=== PATIENT | female | born 1945 | race Caucasian/White ===

== ENCOUNTER 2024-02-29 07:51 | Outpatient (RCR) | payer MEDICARE, BC, SELFPAY ==
--- NOTE | 2024-02-23 23:21 | CTCFLWUP_ITS ---
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 On maintenance rituximab every 2 months for 2 years (05/12/2022??03/2025) S/p 6 cycles of rituximab and Bendamustine (10/16/2021 - 03/12/2020. REASON FOR TODAY?S VISIT: This is office follow-up visit. Ms. Kang is here at [facility] accompanied by her . She is clinically doing well. Denies any new compla ints. Does have occasional diarrhea. Denies any cough, chest pain, abdominal pain or leg cramps. Recently she had repeat CT scans of the chest abdomen pelvis. She is in the clinic today for follow-up. Currently she is on maintenance rituximab and tolerating it very well without any significant side ef fects. HISTORY OF PRESENT ILLNESS: Cherry Kang is a 78-year-old ENG speaking female with history of hypothyroidism gastroesophageal reflux disease referred to hematology clinic for lymphocytosis. 07/29/2019: WBC 9.7, absolute lymphocyte count 3.0, hemoglobin 13.1, MCV 94, platelets 404,000. 05/15/2020: WBC 12.2, absolute lymphocyte count 5.7, hemoglobin 13.8, platelets 390,000. 07/16/2021: WBC 87.1, absolute lymphocyte count 62.2, hemoglobin 13.8, platelets 417,000. 08/29/2021: Bone marrow biopsy and aspiration? 10/16/2021 - 03/12/2022: Ms. Kang was treated with 6 cycles of Bendamustine and rituximab. 04/15/2022: Bone marrow biopsy and aspiration? 04/21/2022: CT scan of the chest abdomen and pelvis with IV contrast 12/08/2022: CT scan of the chest abdomen and pelvis with IV contrast 12/26/2022: Ms. Kang was referred to Dr. Boudreaux. Dr Boudreaux's impression was thickened endometrium without any postmenopausal bleeding. Inactive endometrium by EMB. 08/05/2023: CT scan of the chest abdomen and pelvis with IV contrast? PAST MEDICAL HISTORY: HTN Hypothyroid High?cholesterol GERD PAST SURGICAL HISTORY: Left thumb surgery - 3 yrs ago Phil carpal tunnel surgery - 3 yrs ago MEDICATIONS: 1. amlodipine - 5 mg 1 tab Daily 2. escitalopram oxalate - 10 mg 1 tab Daily 3. hydroCHLOROthiazide - 12.5 mg 1 Capsule Daily 4. levothyroxine - 25 mcg 1 tab Daily 5. lisinopril - 20 mg 1 tab Daily 6. metoprolol tartrate - 50 mg 1 tab Twice a Day 7. pravastatin - 20 mg 1 tab Daily Medications Last Reconciled by Jasmyne Marino MA on 10/20/2023 ALLERGIES: Penicillins; Sulfa (Sulfonamide Antibiotics); erythromycin REVIEW OF SYSTEMS: Neurological: No headache, seizures or blurring of vision. Gastrointestinal: No nausea, vomiting, diarrhea or constipation. Cardiovascular: No palpitations or angina pains. Respiratory: No cough, chest pain or shortness of breath. PHYSICAL EXAMINATION: VITAL SIGNS: Temperature?99.3, B/P?161/71, Oxygen?Saturation?98% Weight?183?lbs PAIN: 0 - No pain EYE: Conjunctivae is white MOUTH: Oral cavity is dry. CHEST: Clear to auscultation. No wheezes or rales audible. CARDIAC: Rhythm regular, no murmurs or gallops present. ABDOMEN: Soft. No hepatomegaly. No splenomegaly. EXTREMITIES: No pedal edema or cyanosis. ASSESSMENT and plan: 1. 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 S/p 6 cycles of Bendamustine rituximab completed on 03/12/2022. Unable to tolerate ibrutinib Recent bone marrow biopsy and aspiration negative for mantle cell lymphoma. CT scans done on 08/05/2023 showed a 4 mm soft pulmonary nodule in the right upper lobe. No other lashell ors were noted. 01/07/2024 CT scan do not show any concerning pulmonary nodules as seen on the last scan. Advised pat ient that her nodules are too small even on July 2023 CT scan and do not require any follow-up Advised to get up to date vaccination as her ability to form good vaccine response is low Patient has been on maintenance rituximab and plan for total 2 years Continue rituximab Patient was checked and do not have hepatitis B. Patient is not sexually active and do not have any high risk behavior. Other medical conditions include hypertension hypothyroidism and gastro esophageal reflux disease and advised to follow-up with primary care 1. Electronically Signed by: {Object.Sanct_ID*PnP.NameFL@M}, {Object.Sanct_ID*PnP.Suffix@U} D: {Object.Sanct_Date} T: {Object.Sanct_Time} CC: PCP: Andres Madrigal Referring: Kam Murphy This document was completed utilizing speech recognition software. Grammatical errors, random word in sertions, pronoun errors, and incomplete sentences are an occasional consequence of this system due t o software limitations, ambient noise, and hardware issues. Any formal questions or concerns about th e content, text or information contained within the body of this dictation should be directly address ed to the provider for clarification.
[2024-02-29 08:40] LABS: Basophils % (Auto) 0 % (0-2.5); Eosinophils # (Auto) 0.1 Thou/mm3 (0.0-0.5); Eosinophils % (Auto) 3 % (0-10); Hematocrit 38.2 % (36.0-46.0); Immature Granulocytes % (Auto) 4 % (0-0); Immature Granulocytes Auto 0.13 Thou/mm3 (0.00-0.00); Lymphocytes # (Auto) 0.5 Thou/mm3 (1.0-4.8); Lymphocytes % (Auto) 16 % (10-50); Mean Corpuscular Hemoglobin 31.2 pg (25.0-35.0); Mean Corpuscular Volume 92 fL (80-100); Monocytes # (Auto) 0.4 Thou/mm3 (0.0-0.8); Monocytes % (Auto) 11 % (0-12); Neutrophils # (Auto) 2.2 Thou/mm3 (1.8-7.7); Neutrophils % (Auto) 66 % (37-80); Nucleated Red Blood Cell % 0 /100 WBC (0); Platelet Count 298 Thou/mm3 (140-440); RDW Standard Deviation 42.4 fL (36.4-46.3); Red Blood Count 4.17 Miln/mm3 (4.00-5.20); White Blood Count 3.3 Thou/mm3 (3.6-11.0)
[2024-02-29 08:58] LABS: Alanine Aminotransferase 15 U/L (10-49); Albumin, Serum 4.4 gm/dL (3.4-4.8); Albumin/Globulin Ratio 2.2 (1.2-2.2); Alkaline Phosphatase 62 U/L (46-116); Anion Gap 5 (7-16); Aspartate Amino Transferase 17 U/L (0-34); BUN/Creatinine Ratio 22 Ratio (12-20); Bilirubin,Total 0.4 mg/dL (0.3-1.2); Blood Urea Nitrogen 13 mg/dL (9-23); Calcium 10.9 mg/dL (8.3-10.6); Calcium (Corrected) 10.9 mg/dL (8.5-10.1); Carbon Dioxide 29.4 mMol/L (20.0-31.0); Chloride 104 mMol/L (98-107); Creatinine (Component) 0.6 mg/dL (0.6-1.3); Glucose 99 mg/dL (74-106); Osmolality,Calculated 275 (275-295); Potassium 4.2 mMol/L (3.4-5.1); Sodium 138 mMol/L (136-145); Total Protein 6.4 gm/dL (5.7-8.2); eGFR > 60 See Note
== END 2024-03-12 23:59 | disposition home or self-care (01) ==
LOC: SCTC 07:51
PROVIDERS: PCP Family Medicine; Referring Provider Family Medicine; Visit Provider Internal Medicine Hematology & Oncology
DX: Z51.11 Encounter for antineoplastic chemotherapy (principal); C83.10 Mantle cell lymphoma, unspecified site; R91.1 Solitary pulmonary nodule; I10 Essential (primary) hypertension; E03.9 Hypothyroidism, unspecified; K21.9 Gastro-esophageal reflux disease without esophagitis
CPT/HCPCS: 80053; 85025; 96375; 96413; 96415; 99212; J1200; J7050; J9312; G0463

== ENCOUNTER 2024-05-02 07:44 | Outpatient (RCR) | payer MEDICARE, BC, SELFPAY ==
[2024-05-02 08:41] LABS: Basophils % (Auto) 2 % (0-2.5); Eosinophils # (Auto) 0.1 Thou/mm3 (0.0-0.5); Eosinophils % (Auto) 4 % (0-10); Hematocrit 36.2 % (36.0-46.0); Hemoglobin 12.3 g/dL (12.0-16.0); Immature Granulocytes % (Auto) 5 % (0-0); Immature Granulocytes Auto 0.06 Thou/mm3 (0.00-0.00); Lymphocytes # (Auto) 0.4 Thou/mm3 (1.0-4.8); Lymphocytes % (Auto) 31 % (10-50); Mean Corpuscular Hemoglobin 30.8 pg (25.0-35.0); Mean Corpuscular Volume 91 fL (80-100); Monocytes # (Auto) 0.3 Thou/mm3 (0.0-0.8); Monocytes % (Auto) 21 % (0-12); Neutrophils # (Auto) 0.5 Thou/mm3 (1.8-7.7); Neutrophils % (Auto) 38 % (37-80); Nucleated Red Blood Cell % 0 /100 WBC (0); Platelet Count 259 Thou/mm3 (140-440); RDW Standard Deviation 44.7 fL (36.4-46.3); Red Blood Count 3.99 Miln/mm3 (4.00-5.20)
[2024-05-02 08:52] LABS: Uric Acid 5.5 mg/dL (3.1-7.8)
[2024-05-02 08:56] LABS: Alanine Aminotransferase 12 U/L (10-49); Albumin, Serum 4.3 gm/dL (3.4-4.8); Albumin/Globulin Ratio 2.3 (1.2-2.2); Alkaline Phosphatase 58 U/L (46-116); Anion Gap 6 (7-16); Aspartate Amino Transferase 14 U/L (0-34); BUN/Creatinine Ratio 20 Ratio (12-20); Bilirubin,Total 0.4 mg/dL (0.3-1.2); Blood Urea Nitrogen 12 mg/dL (9-23); Calcium 10.4 mg/dL (8.3-10.6); Calcium (Corrected) 10.4 mg/dL (8.5-10.1); Carbon Dioxide 27.3 mMol/L (20.0-31.0); Chloride 104 mMol/L (98-107); Creatinine (Component) 0.6 mg/dL (0.6-1.3); Globulin 1.9 gm/dL (2.3-3.5); Glucose 107 mg/dL (74-106); Osmolality,Calculated 273 (275-295); Potassium 4.4 mMol/L (3.4-5.1); Sodium 137 mMol/L (136-145); Total Protein 6.2 gm/dL (5.7-8.2); eGFR > 60 See Note
[2024-05-02 09:15] LABS: White Blood Count 1.3 Thou/mm3 (3.6-11.0)
[2024-05-02 15:51] LABS: Path Review Blood Smear Sent to Pathologist
== END 2024-05-13 23:59 | disposition home or self-care (01) ==
LOC: SCTC 07:44
PROVIDERS: PCP Family Medicine; Referring Provider Family Medicine; Visit Provider Internal Medicine Hematology & Oncology
DX: C83.10 Mantle cell lymphoma, unspecified site (principal); I10 Essential (primary) hypertension; E03.9 Hypothyroidism, unspecified; K21.9 Gastro-esophageal reflux disease without esophagitis
CPT/HCPCS: 36415; 80053; 84550; 85025; J7050; J9312

== ENCOUNTER → 2024-05-17 | Outpatient (CLI) | payer MEDICARE, BC, SELFPAY ==
[2024-05-17 11:16] LABS: Basophils % (Auto) 1 % (0-2.5); Eosinophils # (Auto) 0.1 Thou/mm3 (0.0-0.5); Eosinophils % (Auto) 4 % (0-10); Hematocrit 37.7 % (36.0-46.0); Hemoglobin 12.6 g/dL (12.0-16.0); Immature Granulocytes % (Auto) 8 % (0-0); Immature Granulocytes Auto 0.13 Thou/mm3 (0.00-0.00); Lymphocytes # (Auto) 0.6 Thou/mm3 (1.0-4.8); Lymphocytes % (Auto) 41 % (10-50); Mean Corpuscular HGB Conc 33.4 g/dl (31.0-37.0); Mean Corpuscular Hemoglobin 30.9 pg (25.0-35.0); Mean Corpuscular Volume 92 fL (80-100); Monocytes # (Auto) 0.3 Thou/mm3 (0.0-0.8); Monocytes % (Auto) 21 % (0-12); Neutrophils # (Auto) 0.4 Thou/mm3 (1.8-7.7); Neutrophils % (Auto) 24 % (37-80); Nucleated Red Blood Cell % 0 /100 WBC (0); Platelet Count 266 Thou/mm3 (140-440); RDW Standard Deviation 43.5 fL (36.4-46.3); Red Blood Count 4.08 Miln/mm3 (4.00-5.20)
[2024-05-17 11:32] LABS: White Blood Count 1.6 Thou/mm3 (3.6-11.0)
[2024-05-17 11:34] LABS: T4 (Thyroxine) 7.8 mcg/dL (4.5-10.9)
[2024-05-17 11:41] LABS: Alanine Aminotransferase 13 U/L (10-49); Albumin, Serum 4.4 gm/dL (3.4-4.8); Albumin/Globulin Ratio 2.4 (1.2-2.2); Alkaline Phosphatase 65 U/L (46-116); Anion Gap 6 (7-16); Aspartate Amino Transferase 11 U/L (0-34); BUN/Creatinine Ratio 23 Ratio (12-20); Bilirubin,Total 0.7 mg/dL (0.3-1.2); Blood Urea Nitrogen 14 mg/dL (9-23); Calcium 10.3 mg/dL (8.3-10.6); Calcium (Corrected) 10.3 mg/dL (8.5-10.1); Carbon Dioxide 29.5 mMol/L (20.0-31.0); Chloride 101 mMol/L (98-107); Creatinine (Component) 0.6 mg/dL (0.6-1.3); Globulin 1.8 gm/dL (2.3-3.5); Glucose 91 mg/dL (74-106); Osmolality,Calculated 272 (275-295); Potassium 4.7 mMol/L (3.4-5.1); Sodium 136 mMol/L (136-145); Thyroid Stimulating Hormone 2.95 uIU/mL (0.55-4.78); Total Protein 6.2 gm/dL (5.7-8.2); Uric Acid 5.7 mg/dL (3.1-7.8); eGFR > 60 See Note
== END | disposition home or self-care (01) ==
LOC: SCTO 10:32
PROVIDERS: PCP Family Medicine; Referring Provider Internal Medicine Hematology & Oncology; Visit Provider Internal Medicine Hematology & Oncology
DX: C85.90 Non-Hodgkin lymphoma, unspecified, unspecified site (principal); I10 Essential (primary) hypertension; K58.0 Irritable bowel syndrome with diarrhea; E03.9 Hypothyroidism, unspecified
CPT/HCPCS: 36415; 80053; 84436; 84443; 84550; 85025

== ENCOUNTER 2024-05-18 13:47 | Outpatient (RCR) | payer MEDICARE, BC, SELFPAY ==
[2024-05-16 08:55] LABS: Basophils % (Auto) 1 % (0-2.5); Eosinophils # (Auto) 0.1 Thou/mm3 (0.0-0.5); Eosinophils % (Auto) 3 % (0-10); Hematocrit 36.7 % (36.0-46.0); Hemoglobin 12.4 g/dL (12.0-16.0); Immature Granulocytes % (Auto) 1 % (0-0); Immature Granulocytes Auto 0.01 Thou/mm3 (0.00-0.00); Lymphocytes # (Auto) 0.5 Thou/mm3 (1.0-4.8); Lymphocytes % (Auto) 33 % (10-50); Mean Corpuscular HGB Conc 33.8 g/dl (31.0-37.0); Mean Corpuscular Hemoglobin 31.1 pg (25.0-35.0); Mean Corpuscular Volume 92 fL (80-100); Monocytes # (Auto) 0.4 Thou/mm3 (0.0-0.8); Monocytes % (Auto) 24 % (0-12); Neutrophils # (Auto) 0.6 Thou/mm3 (1.8-7.7); Neutrophils % (Auto) 38 % (37-80); Nucleated Red Blood Cell % 0 /100 WBC (0); Platelet Count 272 Thou/mm3 (140-440); RDW Standard Deviation 44.5 fL (36.4-46.3); Red Blood Count 3.99 Miln/mm3 (4.00-5.20)
[2024-05-16 09:00] LABS: White Blood Count 1.5 Thou/mm3 (3.6-11.0)
[2024-05-16 09:20] LABS: Alanine Aminotransferase 11 U/L (10-49); Albumin, Serum 4.3 gm/dL (3.4-4.8); Albumin/Globulin Ratio 2.2 (1.2-2.2); Alkaline Phosphatase 64 U/L (46-116); Anion Gap 8 (7-16); Aspartate Amino Transferase 13 U/L (0-34); BUN/Creatinine Ratio 18 Ratio (12-20); Bilirubin,Total 0.6 mg/dL (0.3-1.2); Blood Urea Nitrogen 14 mg/dL (9-23); Calcium 10.1 mg/dL (8.3-10.6); Calcium (Corrected) 10.1 mg/dL (8.5-10.1); Carbon Dioxide 26.2 mMol/L (20.0-31.0); Chloride 105 mMol/L (98-107); Creatinine (Component) 0.8 mg/dL (0.6-1.3); Glucose 111 mg/dL (74-106); Osmolality,Calculated 279 (275-295); Potassium 4.1 mMol/L (3.4-5.1); Sodium 139 mMol/L (136-145); Total Protein 6.3 gm/dL (5.7-8.2); eGFR > 60 See Note
[2024-05-16 10:07] LABS: Uric Acid 6.4 mg/dL (3.1-7.8)
--- NOTE | 2024-05-18 14:44 | CTCFLWUP_ITS ---
Patient: CHERRY KANG : 1945 Page 2 of 2 FOLLOW UP NOTE DATE OF SERVICE: 05/18/2024 NAME: CHERRY KANG ACCOUNT: [id number] : 1945 AGE: 78 INTERVAL HISTORY: Patient have no new complaints ONCOLOGY HISTORY: DIAGNOSIS: Non-Hodgkin lymphoma, unspecified, unspecified site [ICD10] C85.90 DATE OF DIAGNOSIS: 07/16/2021 STAGE/TNM: Mantle cell lymphoma TREATMENT HISTORY: Care?Plan Start?Date Cycle Day Intent Rituxan?375?+?Bendamustine?90?Katherine 10/16/2021 1 28 Palliative KCL?20 01/08/2022 1 1 Palliative Rituximab?375mg/m*2?maint?q?2month 05/12/2022 1 60 Palliative HISTORY OF PRESENT ILLNESS: Cherry Kang is a 78-year-old ENG speaking female with history of hypothyroidism gastroesophageal reflux disease referred to hematology clinic for lymphocytosis. 07/29/2019: WBC 9.7, absolute lymphocyte count 3.0, hemoglobin 13.1, MCV 94, platelets 404,000. 05/15/2020: WBC 12.2, absolute lymphocyte count 5.7, hemoglobin 13.8, platelets 390,000. 07/16/2021: WBC 87.1, absolute lymphocyte count 62.2, hemoglobin 13.8, platelets 417,000. 08/29/2021: Bone marrow biopsy and aspiration? 10/16/2021 - 03/12/2022: Ms. Kang was treated with 6 cycles of Bendamustine and rituximab. 04/15/2022: Bone marrow biopsy and aspiration? 04/21/2022: CT scan of the chest abdomen and pelvis with IV contrast 12/08/2022: CT scan of the chest abdomen and pelvis with IV contrast 12/26/2022: Ms. Kang was referred to Dr. Boudreaux. Dr Boudreaux's impression was thickened endometrium without any postmenopausal bleeding. Inactive endometrium by EMB. 08/05/2023: CT scan of the chest abdomen and pelvis with IV contrast? 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 amlodipine - 5 mg 1 tab Daily 2. escitalopram oxalate - 10 mg 1 tab Daily 3. hydroCHLOROthiazide - 12.5 mg 1 Capsule Daily 4. levothyroxine - 25 mcg 1 tab Daily 5. lisinopril - 20 mg 1 tab Daily 6. metoprolol tartrate - 50 mg 1 tab Twice a Day 7. pravastatin - 20 mg 1 tab Daily Medications Last Reconciled by Jasmyne Marino MA on 05/18/2024 ALLERGIES: Penicillins; Sulfa (Sulfonamide Antibiotics); erythromycin REVIEW OF SYSTEMS: A complete 14-point review of systems was performed and is negative except as noted in interval history. PHYSICAL EXAMINATION: VITAL SIGNS: PAIN: 0 - No pain ECOG Performance Status: 0 - Asymptomatic and fully active GENERAL APPEARANCE: Appears well, in no apparent distress, appropriately interactive. HEENT: Normocephalic, no temporal wasting, normal conjunctiva, no scleral icterus, normal hearing, lips without lesions, neck normal range of motion. CARDIOVASCULAR: Not assessed. PULMONARY: Normal respiratory effort, no respiratory distress or use of accessory muscles, speaking in full sentences, no tachypnea. EXTREMITIES: No pedal edema or cyanosis. SKIN: Normal skin appearance. NEUROLOGIC: Alert and oriented x4. PSHYCHIATRIC: Appropriate affect, mood normal, behavior normal, intact thought and speech. 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 S/p 6 cycles of Bendamustine rituximab completed on 03/12/2022. Unable to tolerate ibrutinib Recent bone marrow biopsy and aspiration negative for mantle cell lymphoma. CT scans done on 08/05/2023 showed a 4 mm soft pulmonary nodule in the right upper lobe. No other tumors were noted. 01/07/2024 CT scan do not show any concerning pulmonary nodules as seen on the last scan. Advised patient that her nodules are too small even on July 2023 CT scan and do not require any follow-up Advised to get up to date vaccination as her ability to form good vaccine response is low Patient has been on maintenance rituximab and plan for total 2 years Patient was checked and do not have hepatitis B. Patient is found to be neutropenic Her white cell count has been decreasing since February Last treatment was in February 2024 with Rituxan Will do bone marrow biopsy Will refer to Dr. Santa to do biopsy as well as give second opinion Will also do nutritional workup including B12 folic acid and reticulocyte count Other medical conditions include hypertension hypothyroidism and gastro esophageal reflux disease and advised to follow-up with primary care CBC CMP B12 folic acid reticulocyte count Referral to Dr. Santa for bone marrow biopsy and second opinion RETURN TO CLINIC: 4 weeks BILLING AND COMPLIANCE: I reviewed external records from providers outside my specialty as summarized above. I spent a total of 50 minutes on this patient?s care on the day of their visit excluding time spent related to any billed procedures. This time includes time spent with the patient as well as time spent documenting in the medical record, reviewing patients records and tests, obtaining history, placing orders, communicating with other healthcare professionals, counseling the patient, family or caregiver, and/or care coordination for the diagnoses above. Electronically Signed by: David Mendoza MD T: 2:42 PM CC: PCP: Andres Madrigal Referring: Andres Madrigal This document was completed utilizing speech recognition software. Grammatical errors, random word insertions, pronoun errors, and incomplete sentences are an occasional consequence of this system due to software limitations, ambient noise, and hardware issues. Any formal questions or concerns about the content, text or information contained within the body of this dictation should be directly addressed to the provider for clarification.
== END 2024-06-10 23:59 | disposition home or self-care (01) ==
LOC: SCTC 13:47
PROVIDERS: PCP Family Medicine; Referring Provider Family Medicine; Visit Provider Internal Medicine Hematology & Oncology
DX: C83.10 Mantle cell lymphoma, unspecified site (principal); Z92.21 Personal history of antineoplastic chemotherapy; R91.1 Solitary pulmonary nodule; D70.9 Neutropenia, unspecified; I10 Essential (primary) hypertension; E03.9 Hypothyroidism, unspecified; K21.9 Gastro-esophageal reflux disease without esophagitis
CPT/HCPCS: 36415; 80053; 84550; 85025; 99212; G0463

== ENCOUNTER → 2024-06-10 | Outpatient (CLI) | payer MEDICARE, BC, SELFPAY ==
--- NOTE | 2024-06-10 14:00 | XR_ITS ---
Examination: Bone scan whole body, radioisotope Date and time of exam: June 02, 2024 1334 hrs. Indications: Diagnosis lymphocytosis, non-Hodgkin's lymphoma Technique: Study has been performed with intravenous administration of 24.2 mci 99M technetium MDP. Anterior, posterior whole body images are obtained. Images have been obtained including the lower extremities. Findings: Positive bone scan, increased isotope accumulation L3 and mid to lower dorsal vertebral body likely T8 Impression: Positive bone scan L3, T8, recommend plain films lumbar thoracic spine follow-up
== END | disposition home or self-care (01) ==
LOC: SNUC 08:18
PROVIDERS: PCP Family Medicine; Referring Provider Internal Medicine Hematology & Oncology; Visit Provider Internal Medicine Hematology & Oncology
DX: R93.7 Abnormal findings on diagnostic imaging of other parts of musculoskeletal system (principal); C85.90 Non-Hodgkin lymphoma, unspecified, unspecified site
CPT/HCPCS: 78306; A9503

== ENCOUNTER → 2024-06-20 | Outpatient (CLI) | payer MEDICARE, BC, SELFPAY ==
--- NOTE | 2024-06-20 | XR_ITS ---
Examination: Lumbar spine, 5 views Technique: Lumbar spine AP, lateral, coned lateral lower lumbar spine, bilateral obliques 5 views Exam date and time: June 20, 2024 1040 hrs. Comparison Nika medicine bone scan June 10, 2024 Indications: Diagnosis non-Hodgkin's lymphoma, positive nuclear medicine bone scan June 10, 2024 including L3 vertebral body Findings: Significant osteopenia Diffuse advanced facet arthropathy Diffuse advanced lumbar degenerative disc disease No osteoblastic or osteolytic vertebral body lesions Impression: Diffuse advanced lumbar degenerative disc disease No findings diagnostic for osseous metastatic disease
--- NOTE | 2024-06-20 | XR_ITS ---
Examination: Thoracic spine 3 views Technique one AP lateral coned lateral upper dorsal spine 3 views Exam date and time: June 20, 2024 1040 hrs. Comparison [facility] medicine bone scan April 09, 2025 Indications: Back pain this month, diagnosis non-Hodgkin's lymphoma., Positive nuclear medicine bone scan L3, T8 Findings: Adequate alignment thoracic vertebral bodies No thoracic fracture No cortical bone destruction or osteoblastic metastases noted Diffuse moderate to advanced thoracic degenerative disc disease Impression: Diffuse advanced thoracic degenerative disc disease No findings diagnostic for osseous metastatic disease
== END | disposition home or self-care (01) ==
PROVIDERS: PCP Family Medicine; Referring Provider Internal Medicine Hematology & Oncology; Visit Provider Internal Medicine Hematology & Oncology
DX: M51.34 Other intervertebral disc degeneration, thoracic region (principal); M51.369 Other intervertebral disc degeneration, lumbar region without mention of lumbar back pain or lower extremity pain; C85.90 Non-Hodgkin lymphoma, unspecified, unspecified site
CPT/HCPCS: 72072; 72110

== ENCOUNTER → 2024-06-28 | Outpatient (CLI) | payer MEDICARE, BC, SELFPAY ==
[2024-06-28 12:29] LABS: Basophils % (Auto) 1 % (0-2.5); Eosinophils % (Auto) 2 % (0-10); Hematocrit 36.3 % (36.0-46.0); Hemoglobin 12.7 g/dL (12.0-16.0); Immature Granulocytes % (Auto) 3 % (0-0); Immature Granulocytes Auto 0.06 Thou/mm3 (0.00-0.00); Immature Reticulocyte Fraction 6.7 % (3.0-15.9); Lymphocytes # (Auto) 0.6 Thou/mm3 (1.0-4.8); Lymphocytes % (Auto) 35 % (10-50); Mean Corpuscular Hemoglobin 31.2 pg (25.0-35.0); Mean Corpuscular Volume 89 fL (80-100); Monocytes # (Auto) 0.4 Thou/mm3 (0.0-0.8); Monocytes % (Auto) 22 % (0-12); Neutrophils # (Auto) 0.6 Thou/mm3 (1.8-7.7); Neutrophils % (Auto) 36 % (37-80); Nucleated Red Blood Cell % 0 /100 WBC (0); Platelet Count 270 Thou/mm3 (140-440); RDW Standard Deviation 41.8 fL (36.4-46.3); Red Blood Count 4.07 Miln/mm3 (4.00-5.20); Reticulocyte Absolute Auto 82.2 Biln/L (25.0-75.0); Reticulocyte Hgb Content 36.3 pg (28.0-35.0)
[2024-06-28 12:38] LABS: White Blood Count 1.8 Thou/mm3 (3.6-11.0)
[2024-06-28 12:50] LABS: Parathyroid Hormone Intact 79.1 pg/ml (18.5-88.0)
[2024-06-28 12:54] LABS: Alanine Aminotransferase 11 U/L (10-49); Albumin, Serum 4.3 gm/dL (3.4-4.8); Albumin/Globulin Ratio 2.3 (1.2-2.2); Alkaline Phosphatase 64 U/L (46-116); Anion Gap 6 (7-16); Aspartate Amino Transferase 13 U/L (0-34); BUN/Creatinine Ratio 18 Ratio (12-20); Bilirubin,Total 0.8 mg/dL (0.3-1.2); Blood Urea Nitrogen 11 mg/dL (9-23); Calcium 10.2 mg/dL (8.3-10.6); Calcium (Corrected) 10.2 mg/dL (8.5-10.1); Carbon Dioxide 30.5 mMol/L (20.0-31.0); Chloride 97 mMol/L (98-107); Creatinine (Component) 0.6 mg/dL (0.6-1.3); Globulin 1.9 gm/dL (2.3-3.5); Glucose 87 mg/dL (74-106); Osmolality,Calculated 264 (275-295); Potassium 3.8 mMol/L (3.4-5.1); Sodium 133 mMol/L (136-145); Total Protein 6.2 gm/dL (5.7-8.2); eGFR > 60 See Note
[2024-06-28 12:56] LABS: Vitamin B12 703 pg/mL (211-911)
== END | disposition home or self-care (01) ==
LOC: SCTO 11:28
PROVIDERS: PCP Family Medicine; Referring Provider Internal Medicine Hematology & Oncology; Visit Provider Internal Medicine Hematology & Oncology
DX: C85.90 Non-Hodgkin lymphoma, unspecified, unspecified site (principal)
CPT/HCPCS: 36415; 80053; 82607; 82746; 83970; 85025; 85046

== ENCOUNTER 2024-06-29 11:37 | Outpatient (RCR) | payer MEDICARE, BC, SELFPAY ==
--- NOTE | 2024-07-18 00:24 | CTCFLWUP_ITS ---
Patient: CHERRY KANG : 1945 Page 5 of 7 FOLLOW UP NOTE DATE OF SERVICE: 06/29/2024 NAME: CHERRY KANG ACCOUNT: [id number] : 1945 AGE: 79 INTERVAL HISTORY: Patient have no new complaints ONCOLOGY HISTORY: DIAGNOSIS: Non-Hodgkin lymphoma, unspecified, unspecified site [ICD10] C85.90 DATE OF DIAGNOSIS: 07/16/2021 STAGE/TNM: Mantle cell lymphoma TREATMENT HISTORY: Care?Plan Start?Date Cycle Day Intent Rituxan?375?+?Bendamustine?90?Katherine 10/16/2021 1 28 Palliative KCL?20 01/08/2022 1 1 Palliative Rituximab?375mg/m*2?maint?q?2month 05/12/2022 1 60 Palliative zometa?q?30?days,?q?90?days?for?bone?mets 06/29/2024 1 90 Maintenance HISTORY OF PRESENT ILLNESS: Cherry Kang is a 79-year-old ENG speaking female with history of hypothyroidism gastroesophageal reflux disease referred to hematology clinic for lymphocytosis. 07/29/2019: WBC 9.7, absolute lymphocyte count 3.0, hemoglobin 13.1, MCV 94, platelets 404,000. 05/15/2020: WBC 12.2, absolute lymphocyte count 5.7, hemoglobin 13.8, platelets 390,000. 07/16/2021: WBC 87.1, absolute lymphocyte count 62.2, hemoglobin 13.8, platelets 417,000. 08/29/2021: Bone marrow biopsy and aspiration? 10/16/2021 - 03/12/2022: Ms. Kang was treated with 6 cycles of Bendamustine and rituximab. 04/15/2022: Bone marrow biopsy and aspiration? 04/21/2022: CT scan of the chest abdomen and pelvis with IV contrast 12/08/2022: CT scan of the chest abdomen and pelvis with IV contrast 12/26/2022: Ms. Kang was referred to Dr. Boudreaux. Dr Boudreaux's impression was thickened endometrium without any postmenopausal bleeding. Inactive endometrium by EMB. 08/05/2023: CT scan of the chest abdomen and pelvis with IV contrast? 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 amlodipine - 5 mg 1 tab Daily 2. escitalopram oxalate - 10 mg 1 tab Daily 3. hydroCHLOROthiazide - 12.5 mg 1 Capsule Daily 4. levothyroxine - 25 mcg 1 tab Daily 5. lisinopril - 20 mg 1 tab Daily 6. metoprolol tartrate - 50 mg 1 tab Twice a Day 7. pravastatin - 20 mg 1 tab Daily Medications Last Reconciled by Delmi Dillard MA on 06/29/2024 ALLERGIES: Penicillins; Sulfa (Sulfonamide Antibiotics); erythromycin REVIEW OF SYSTEMS: A complete 14-point review of systems was performed and is negative except as noted in interval history. PHYSICAL EXAMINATION: VITAL SIGNS: Temperature?98.3, B/P?165/77, Oxygen?Saturation?99% Weight?187?lbs PAIN: 0 - No pain ECOG Performance Status: 0 - Asymptomatic and fully active GENERAL APPEARANCE: Appears well, in no apparent distress, appropriately interactive. HEENT: Normocephalic, no temporal wasting, normal conjunctiva, no scleral icterus, normal hearing, lips without lesions, neck normal range of motion. CARDIOVASCULAR: Not assessed. PULMONARY: Normal respiratory effort, no respiratory distress or use of accessory muscles, speaking in full sentences, no tachypnea. EXTREMITIES: No pedal edema or cyanosis. SKIN: Normal skin appearance. NEUROLOGIC: Alert and oriented x4. PSHYCHIATRIC: Appropriate affect, mood normal, behavior normal, intact thought and speech. LABORATORY DATA: I have personally reviewed and interpreted each of the patient?s relevant lab tests, abnormal findings are below: Date 05/17/24 06/28/24 ??WHITE?BLOOD?COUNT?(Thou/mm3) 1.6?L 1.8?L ??RED?BLOOD?COUNT?(Miln/mm3) 4.08 4.07 ??HEMOGLOBIN?(gm/dl) 12.6 12.7 ??HEMATOCRIT?(%) 37.7 36.3 ??PLATELET?COUNT?(Thou/mm3) 266 270 ??NEUTROPHILS?%,?AUTO?(%) 24?L 36?L ??LYMPH?%,?AUTO?(%) 41 35 ??NEUTROPHILS,?AUTO?(Thou/mm3) 0.4?L 0.6?L ??GLUCOSE,RANDOM?(mg/dL) ? 87 ??BLOOD?UREA?NITROGEN?(mg/dL) ? 11 ??CREATININE?(mg/dL) ? 0.60 ??SODIUM?(mmol/L) ? 133?L ??POTASSIUM?(mmol/L) ? 3.8 ??CHLORIDE?(mmol/L) ? 97?L ??CrCl?(CandG)?(ml/min) ? 83.41 ??AST/SGOT?(Unit/L) ? 13 ??ALT/SGPT?(Unit/L) ? 11 ??ALKALINE?PHOSPHATASE?(Unit/L) ? 64 ??BILIRUBIN,?TOTAL?(mg/dL) ? 0.8 ??PROTEIN?TOTAL?(gm/dl) ? 6.2 ??ALBUMIN,?SERUM?(gm/dl) ? 4.3 ??GLOBULIN?(gm/dl) ? 1.9?L ??ALBUMIN/GLOBULIN?RATIO ? 2.3?H ??CALCIUM,?SERUM?(mg/dL) ? 10.2 ??CALCIUM?SERUM?(CORRECTED)?(mg/dL) ? 10.2?H ??RETICULOCYTE?ABSOLUTE?AUTO?(Biln/L) ? 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 S/p 6 cycles of Bendamustine rituximab completed on 03/12/2022. Unable to tolerate ibrutinib Recent bone marrow biopsy and aspiration negative for mantle cell lymphoma. CT scans done on 08/05/2023 showed a 4 mm soft pulmonary nodule in the right upper lobe. No other tumors were noted. 01/07/2024 CT scan do not show any concerning pulmonary nodules as seen on the last scan. Advised patient that her nodules are too small even on July 2023 CT scan and do not require any follow-up Advised to get up to date vaccination as her ability to form good vaccine response is low Patient has been on maintenance rituximab and plan for total 2 years Patient was checked and do not have hepatitis B. Patient is found to be neutropenic Her white cell count has been decreasing since February Last treatment was in February 2024 with Rituxan Will do bone marrow biopsy Will refer to Dr. Santa to do biopsy as well as give second opinion Will also do nutritional workup including B12 folic acid and reticulocyte count Other medical conditions include hypertension hypothyroidism and gastro esophageal reflux disease and advised to follow-up with primary care CBC CMP B12 folic acid reticulocyte count Referral to Dr. Santa for bone marrow biopsy and second opinion ORDERS: Order # Description [id number] Plain Films [id number] Comprehensive Metabolic Panel - 12 + CBC with Auto Diff [id number] MD Follow Up 2 Months [id number] Follow Up Appointment MD RETURN TO CLINIC: 6 weeks BILLING AND COMPLIANCE: I reviewed external records from providers outside my specialty as summarized above. I spent a total of 50 minutes on this patient?s care on the day of their visit excluding time spent related to any billed procedures. This time includes time spent with the patient as well as time spent documenting in the medical record, reviewing patients records and tests, obtaining history, placing orders, communicating with other healthcare professionals, counseling the patient, family or caregiver, and/or care coordination for the diagnoses above. Electronically Signed by: David Mendoza MD T: 12:22 AM CC: PCP: Andres Madrigal Referring: Andres Madrigal This document was completed utilizing speech recognition software. Grammatical errors, random word insertions, pronoun errors, and incomplete sentences are an occasional consequence of this system due to software limitations, ambient noise, and hardware issues. Any formal questions or concerns about the content, text or information contained within the body of this dictation should be directly addressed to the provider for clarification.
== END 2024-07-11 23:59 | disposition home or self-care (01) ==
LOC: SCTC 11:37
PROVIDERS: PCP Family Medicine; Referring Provider Family Medicine; Visit Provider Internal Medicine Hematology & Oncology
DX: C83.10 Mantle cell lymphoma, unspecified site (principal); Z92.21 Personal history of antineoplastic chemotherapy
CPT/HCPCS: 99212; G0463

== ENCOUNTER 2024-07-20 13:48 | Outpatient (RCR) | payer MEDICARE, BC, SELFPAY ==
[2024-07-20 14:28] LABS: Basophils % (Auto) 1 % (0-2.5); Eosinophils # (Auto) 0.1 Thou/mm3 (0.0-0.5); Eosinophils % (Auto) 3 % (0-10); Hematocrit 37.1 % (36.0-46.0); Immature Granulocytes % (Auto) 8 % (0-0); Immature Granulocytes Auto 0.17 Thou/mm3 (0.00-0.00); Lymphocytes # (Auto) 0.6 Thou/mm3 (1.0-4.8); Lymphocytes % (Auto) 28 % (10-50); Mean Corpuscular Hemoglobin 31.3 pg (25.0-35.0); Mean Corpuscular Volume 89 fL (80-100); Monocytes # (Auto) 0.4 Thou/mm3 (0.0-0.8); Monocytes % (Auto) 18 % (0-12); Neutrophils # (Auto) 0.9 Thou/mm3 (1.8-7.7); Neutrophils % (Auto) 42 % (37-80); Nucleated Red Blood Cell % 0 /100 WBC (0); Platelet Count 282 Thou/mm3 (140-440); RDW Standard Deviation 41.9 fL (36.4-46.3); Red Blood Count 4.15 Miln/mm3 (4.00-5.20)
[2024-07-20 14:29] LABS: White Blood Count 2.2 Thou/mm3 (3.6-11.0)
[2024-07-20 14:51] LABS: Alanine Aminotransferase 13 U/L (10-49); Albumin, Serum 4.6 gm/dL (3.4-4.8); Albumin/Globulin Ratio 2.2 (1.2-2.2); Alkaline Phosphatase 62 U/L (46-116); Anion Gap 8 (7-16); Aspartate Amino Transferase 26 U/L (0-34); BUN/Creatinine Ratio 20 Ratio (12-20); Bilirubin,Total 0.9 mg/dL (0.3-1.2); Blood Urea Nitrogen 14 mg/dL (9-23); Chloride 99 mMol/L (98-107); Creatinine (Component) 0.7 mg/dL (0.6-1.3); Globulin 2.1 gm/dL (2.3-3.5); Glucose 102 mg/dL (74-106); Osmolality,Calculated 268 (275-295); Potassium 4.2 mMol/L (3.4-5.1); Sodium 134 mMol/L (136-145); Total Protein 6.7 gm/dL (5.7-8.2); eGFR > 60 See Note
== END 2024-08-10 23:59 | disposition home or self-care (01) ==
LOC: SCTC 13:48
PROVIDERS: PCP Family Medicine; Referring Provider Family Medicine; Visit Provider Internal Medicine Hematology & Oncology
DX: C83.10 Mantle cell lymphoma, unspecified site (principal); Z92.3 Personal history of irradiation; R91.1 Solitary pulmonary nodule
CPT/HCPCS: 80053; 85025; 96365; J3489

== ENCOUNTER → 2024-07-28 | Outpatient (CLI) | payer MEDICARE, BC, SELFPAY ==
--- NOTE | 2024-07-28 12:20 | XR_ITS ---
Examination: Bone densitometry Date and time of exam:July 28, 2024 1239 hours INDICATIONS: Menopause age 53 Technique: Lumbar spine and hip total bone mineralization values of an calculated. Peak reference and age match control results have been displayed. Findings: Lumbar spine total bone mineralization is1.242 gm/cm2. This is 1.8 above standard deviations above peak reference. This is 4.5 standard deviations above age-matched controls. Hip total bone mineralization is 1.022 gm/cm2 This is 0.7 standard deviations above peak reference. This is 2.7 standard deviations above age-matched controls Impression: There is normal mineralization based on lumbar spine measurements. There is osteopenia based on hip measurements Lumbar mineralization is increased 5.7% compared with May 02, 2021 Hip mineralization is decreased 2.4% compared with May 02, 2021
== END | disposition home or self-care (01) ==
PROVIDERS: PCP Family Medicine; Referring Provider Internal Medicine Hematology & Oncology; Visit Provider Internal Medicine Hematology & Oncology
DX: M85.89 Other specified disorders of bone density and structure, multiple sites (principal); C85.90 Non-Hodgkin lymphoma, unspecified, unspecified site
CPT/HCPCS: 77080

== ENCOUNTER 2024-08-18 12:57 | Outpatient (RCR) | payer MEDICARE, BC, SELFPAY ==
[2024-08-18 13:28] LABS: Basophils % (Auto) 1 % (0-2.5); Eosinophils # (Auto) 0.1 Thou/mm3 (0.0-0.5); Eosinophils % (Auto) 3 % (0-10); Hematocrit 34.7 % (36.0-46.0); Hemoglobin 12.4 g/dL (12.0-16.0); Immature Granulocytes % (Auto) 7 % (0-0); Immature Granulocytes Auto 0.11 Thou/mm3 (0.00-0.00); Lymphocytes # (Auto) 0.5 Thou/mm3 (1.0-4.8); Lymphocytes % (Auto) 29 % (10-50); Mean Corpuscular HGB Conc 35.7 g/dl (31.0-37.0); Mean Corpuscular Hemoglobin 31.8 pg (25.0-35.0); Mean Corpuscular Volume 89 fL (80-100); Monocytes # (Auto) 0.3 Thou/mm3 (0.0-0.8); Monocytes % (Auto) 18 % (0-12); Neutrophils # (Auto) 0.7 Thou/mm3 (1.8-7.7); Neutrophils % (Auto) 42 % (37-80); Nucleated Red Blood Cell % 0 /100 WBC (0); Platelet Count 251 Thou/mm3 (140-440); RDW Standard Deviation 41.8 fL (36.4-46.3)
[2024-08-18 13:46] LABS: Alanine Aminotransferase 11 U/L (10-49); Albumin, Serum 4.5 gm/dL (3.4-4.8); Albumin/Globulin Ratio 2.3 (1.2-2.2); Alkaline Phosphatase 59 U/L (46-116); Anion Gap 6 (7-16); Aspartate Amino Transferase 20 U/L (0-34); BUN/Creatinine Ratio 23 Ratio (12-20); Bilirubin,Total 0.7 mg/dL (0.3-1.2); Blood Urea Nitrogen 14 mg/dL (9-23); Calcium 9.5 mg/dL (8.3-10.6); Calcium (Corrected) 9.5 mg/dL (8.5-10.1); Carbon Dioxide 26.7 mMol/L (20.0-31.0); Chloride 99 mMol/L (98-107); Creatinine (Component) 0.6 mg/dL (0.6-1.3); Glucose 104 mg/dL (74-106); Osmolality,Calculated 265 (275-295); Potassium 4.5 mMol/L (3.4-5.1); Sodium 132 mMol/L (136-145); Total Protein 6.5 gm/dL (5.7-8.2); eGFR > 60 See Note
[2024-08-18 13:49] LABS: White Blood Count 1.7 Thou/mm3 (3.6-11.0)
== END 2024-09-10 23:59 | disposition home or self-care (01) ==
LOC: SCTC 12:57
PROVIDERS: PCP Family Medicine; Referring Provider Family Medicine; Visit Provider Internal Medicine Hematology & Oncology
DX: C83.10 Mantle cell lymphoma, unspecified site (principal); R91.1 Solitary pulmonary nodule; D70.9 Neutropenia, unspecified; I10 Essential (primary) hypertension; E03.9 Hypothyroidism, unspecified; K21.9 Gastro-esophageal reflux disease without esophagitis
CPT/HCPCS: 80053; 85025; 96365; J3489

== ENCOUNTER → 2024-09-08 | Outpatient (CLI) | payer MEDICARE, BC, SELFPAY ==
[2024-09-08 13:09] LABS: Basophils % (Auto) 1 % (0-2.5); Eosinophils % (Auto) 2 % (0-10); Hematocrit 33.6 % (36.0-46.0); Hemoglobin 12.1 g/dL (12.0-16.0); Immature Granulocytes % (Auto) 11 % (0-0); Immature Granulocytes Auto 0.18 Thou/mm3 (0.00-0.00); Lymphocytes # (Auto) 0.5 Thou/mm3 (1.0-4.8); Lymphocytes % (Auto) 29 % (10-50); Mean Corpuscular Hemoglobin 31.8 pg (25.0-35.0); Mean Corpuscular Volume 88 fL (80-100); Monocytes # (Auto) 0.3 Thou/mm3 (0.0-0.8); Monocytes % (Auto) 20 % (0-12); Neutrophils # (Auto) 0.6 Thou/mm3 (1.8-7.7); Neutrophils % (Auto) 37 % (37-80); Nucleated Red Blood Cell % 0 /100 WBC (0); Platelet Count 280 Thou/mm3 (140-440); RDW Standard Deviation 41.8 fL (36.4-46.3)
[2024-09-08 13:14] LABS: White Blood Count 1.6 Thou/mm3 (3.6-11.0)
[2024-09-08 13:21] LABS: Parathyroid Hormone Intact 84.9 pg/ml (18.5-88.0)
[2024-09-08 13:35] LABS: Alanine Aminotransferase 10 U/L (10-49); Albumin, Serum 4.4 gm/dL (3.4-4.8); Albumin/Globulin Ratio 2.8 (1.2-2.2); Alkaline Phosphatase 62 U/L (46-116); Anion Gap 8 (7-16); Aspartate Amino Transferase 16 U/L (0-34); BUN/Creatinine Ratio 17 Ratio (12-20); Bilirubin,Total 0.7 mg/dL (0.3-1.2); Blood Urea Nitrogen 10 mg/dL (9-23); Carbon Dioxide 27.4 mMol/L (20.0-31.0); Chloride 97 mMol/L (98-107); Creatinine (Component) 0.6 mg/dL (0.6-1.3); Globulin 1.6 gm/dL (2.3-3.5); Glucose 102 mg/dL (74-106); Osmolality,Calculated 263 (275-295); Potassium 4.1 mMol/L (3.4-5.1); Sodium 132 mMol/L (136-145); eGFR > 60 See Note
== END | disposition home or self-care (01) ==
LOC: SCTO 11:53
PROVIDERS: PCP Family Medicine; Referring Provider Internal Medicine Hematology & Oncology; Visit Provider Internal Medicine Hematology & Oncology
DX: C85.90 Non-Hodgkin lymphoma, unspecified, unspecified site (principal)
CPT/HCPCS: 36415; 80053; 83970; 85025

== ENCOUNTER 2024-09-19 12:55 | Outpatient (RCR) | payer MEDICARE, BC, SELFPAY ==
--- NOTE | 2024-09-13 06:14 | CTCFLWUP_ITS ---
Patient: CHERRY KANG : 1945 Page 6 of 7 FOLLOW UP NOTE DATE OF SERVICE: 09/12/2024 NAME: CHERRY KANG ACCOUNT: [id number] : 1945 AGE: 79 INTERVAL HISTORY: Patient was recently seen by Dr. Santa and had bone marrow biopsy and was advised that it came back as negative. Patient was also advised that new tests were ordered for which she will be following up with Dr. Santa. Denies any new complaints since last visit ONCOLOGY HISTORY: DIAGNOSIS: Non-Hodgkin lymphoma, unspecified, unspecified site [ICD10] C85.90 DATE OF DIAGNOSIS: 07/16/2021 STAGE/TNM: Mantle cell lymphoma TREATMENT HISTORY: Care?Plan Start?Date Cycle Day Intent Rituxan?375?+?Bendamustine?90?Katherine 10/16/2021 1 28 Palliative KCL?20 01/08/2022 1 1 Palliative Rituximab?375mg/m*2?maint?q?2month 05/12/2022 1 60 Palliative zometa?q?30?days,?q?90?days?for?bone?mets 07/20/2024 1 90 Maintenance HISTORY OF PRESENT ILLNESS: Cherry Kang is a 79-year-old ENG speaking female with history of hypothyroidism gastroesophageal reflux disease referred to hematology clinic for lymphocytosis. 07/29/2019: WBC 9.7, absolute lymphocyte count 3.0, hemoglobin 13.1, MCV 94, platelets 404,000. 05/15/2020: WBC 12.2, absolute lymphocyte count 5.7, hemoglobin 13.8, platelets 390,000. 07/16/2021: WBC 87.1, absolute lymphocyte count 62.2, hemoglobin 13.8, platelets 417,000. 08/29/2021: Bone marrow biopsy and aspiration? 10/16/2021 - 03/12/2022: Ms. Kang was treated with 6 cycles of Bendamustine and rituximab. 04/15/2022: Bone marrow biopsy and aspiration? 04/21/2022: CT scan of the chest abdomen and pelvis with IV contrast 12/08/2022: CT scan of the chest abdomen and pelvis with IV contrast 12/26/2022: Ms. Kang was referred to Dr. Boudreaux. Dr Boudreaux's impression was thickened endometrium without any postmenopausal bleeding. Inactive endometrium by EMB. 08/05/2023: CT scan of the chest abdomen and pelvis with IV contrast? 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 amlodipine - 5 mg 1 tab Daily 2. escitalopram oxalate - 10 mg 1 tab Daily 3. hydroCHLOROthiazide - 12.5 mg 1 Capsule Daily 4. levothyroxine - 25 mcg 1 tab Daily 5. lisinopril - 20 mg 1 tab Daily 6. metoprolol tartrate - 50 mg 1 tab Twice a Day 7. pravastatin - 20 mg 1 tab Daily Medications Last Reconciled by Jasmyne Marino MA on 09/12/2024 ALLERGIES: Penicillins; Sulfa (Sulfonamide Antibiotics); erythromycin REVIEW OF SYSTEMS: A complete 14-point review of systems was performed and is negative except as noted in interval history. PHYSICAL EXAMINATION: VITAL SIGNS: Temperature?98, B/P?132/82, Oxygen?Saturation?98% PAIN: 0 - No pain ECOG Performance Status: 0 - Asymptomatic and fully active GENERAL APPEARANCE: Appears well, in no apparent distress, appropriately interactive. HEENT: Normocephalic, no temporal wasting, normal conjunctiva, no scleral icterus, normal hearing, lips without lesions, neck normal range of motion. CARDIOVASCULAR: Not assessed. PULMONARY: Normal respiratory effort, no respiratory distress or use of accessory muscles, speaking in full sentences, no tachypnea. EXTREMITIES: No pedal edema or cyanosis. SKIN: Normal skin appearance. NEUROLOGIC: Alert and oriented x4. PSHYCHIATRIC: Appropriate affect, mood normal, behavior normal, intact thought and speech. LABORATORY DATA: I have personally reviewed and interpreted each of the patient?s relevant lab tests, abnormal findings are below: Date 08/18/24 09/08/24 ??WHITE?BLOOD?COUNT?(Thou/mm3) 1.7?L 1.6?L ??RED?BLOOD?COUNT?(Miln/mm3) 3.90?L 3.80?L ??HEMOGLOBIN?(gm/dl) 12.4 12.1 ??HEMATOCRIT?(%) 34.7?L 33.6?L ??PLATELET?COUNT?(Thou/mm3) 251 280 ??NEUTROPHILS?%,?AUTO?(%) 42 37 ??LYMPH?%,?AUTO?(%) 29 29 ??NEUTROPHILS,?AUTO?(Thou/mm3) 0.7?L 0.6?L ??GLUCOSE,RANDOM?(mg/dL) 104 102 ??BLOOD?UREA?NITROGEN?(mg/dL) 14 10 ??CREATININE?(mg/dL) 0.60 0.60 ??SODIUM?(mmol/L) 132?L 132?L ??POTASSIUM?(mmol/L) 4.5 4.1 ??CHLORIDE?(mmol/L) 99 97?L ??CrCl?(CandG)?(ml/min) 83.49 83.49 ??AST/SGOT?(Unit/L) 20 16 ??ALT/SGPT?(Unit/L) 11 10 ??ALKALINE?PHOSPHATASE?(Unit/L) 59 62 ??BILIRUBIN,?TOTAL?(mg/dL) 0.7 0.7 ??PROTEIN?TOTAL?(gm/dl) 6.5 6.0 ??ALBUMIN,?SERUM?(gm/dl) 4.5 4.4 ??GLOBULIN?(gm/dl) 2.0?L 1.6?L ??ALBUMIN/GLOBULIN?RATIO 2.3?H 2.8?H ??CALCIUM,?SERUM?(mg/dL) 9.5 10.0 ??CALCIUM?SERUM?(CORRECTED)?(mg/dL) 9.5 10.0 ASSESSMENT/PLAN: Mantle cell lymphoma, T p53 mutated, 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 S/p 6 cycles of Bendamustine rituximab completed on 03/12/2022. Unable to tolerate ibrutinib Recent bone marrow biopsy and aspiration negative for mantle cell lymphoma. CT scans done on 08/05/2023 showed a 4 mm soft pulmonary nodule in the right upper lobe. No other tumors were noted. 01/07/2024 CT scan do not show any concerning pulmonary nodules as seen on the last scan. Advised patient that her nodules are too small even on July 2023 CT scan and do not require any follow-up Advised to get up to date vaccination as her ability to form good vaccine response is low Patient has been on maintenance rituximab and plan for total 2 years Patient was checked and do not have hepatitis B. Patient is found to be neutropenic Her white cell count has been decreasing since February Last treatment was in February 2024 with Rituxan Bone marrow biopsy, Dr. Santa I do not have a report available. Advised staff to get report as soon as possible Patient also have PET CT scan scheduled on 29 September I will see the patient back with the bone marrow biopsy and PET set CT scan results Patient and informed me that her bone marrow biopsy came back negative and a few more tests were ordered by Dr. Immanuel Vallejo which patient plans to do before her next visit with her ORDERS: Order # Description RETURN TO CLINIC: 2 to 3 weeks with the results of PET scan and bone marrow biopsy BILLING AND COMPLIANCE: I reviewed external records from providers outside my specialty as summarized above. I spent a total of 50 minutes on this patient?s care on the day of their visit excluding time spent related to any billed procedures. This time includes time spent with the patient as well as time spent documenting in the medical record, reviewing patients records and tests, obtaining history, placing orders, communicating with other healthcare professionals, counseling the patient, family or caregiver, and/or care coordination for the diagnoses above. Electronically Signed by: {Object.Sanct_ID*[email or web address]@M}, {Object.Sanct_ID*PnP.Suffix@U} D: {Object.Sanct_Date} T: {Object.Sanct_Time} CC: PCP: Andres Madrigal Referring: Andres Madrigal This document was completed utilizing speech recognition software. Grammatical errors, random word insertions, pronoun errors, and incomplete sentences are an occasional consequence of this system due to software limitations, ambient noise, and hardware issues. Any formal questions or concerns about the content, text or information contained within the body of this dictation should be directly addressed to the provider for clarification.
== END 2024-10-10 23:59 | disposition home or self-care (01) ==
LOC: SCTC 12:55
PROVIDERS: PCP Family Medicine; Referring Provider Family Medicine; Visit Provider Internal Medicine Hematology & Oncology
DX: C83.10 Mantle cell lymphoma, unspecified site (principal); R91.1 Solitary pulmonary nodule; D70.9 Neutropenia, unspecified
CPT/HCPCS: 96365; 99212; J3489; G0463

== ENCOUNTER → 2024-09-27 | Outpatient (CLI) | payer MEDICARE, BC, SELFPAY ==
--- NOTE | 2024-09-27 14:45 | XR_ITS ---
EXAMINATION: PET/CT FUSION SKULL TO THIGH EXAM DATE AND TIME: September 27, 2024 1610 hours INDICATIONS: Diagnosis lymphocytosis, non-Hodgkin's lymphoma, restaging CTDI:vol (mGy) 6.89 DLP: (mGycm) 629 PROCEDURE: 13.8 mCi FDG was administered intravenously To allow for distribution and uptake of radiotracer, the patient was allowed to rest quietly in a shielded room. Imaging was performed on an integrated 16-slice PET/CT scanner, with scanning from the skull base to the mid thigh. Serum blood glucose at the time of the injection was measured 114 mg/dL. CT scanning was performed without oral or intravenous contrast material. FINDINGS: Head and Neck: There is no tessie hypermetabolism in the neck. The visualized portions of the brain are normal in appearance on CT. Chest: There is no tessie hypermetabolism in the chest. There are no pulmonary nodules. Abdomen and Pelvis: There is no tessie hypermetabolism in retroperitoneal or pelvic chains. The spleen is normal in size and FDG avidity. Musculoskeletal: Marrow uptake is within normal range. IMPRESSION: No hypermetabolic mediastinal, abdominal or pelvic lymphadenopathy Hypermetabolic bilateral thyroid lobes
== END | disposition home or self-care (01) ==
LOC: CDIM 14:12
PROVIDERS: PCP Family Medicine; Referring Provider Internal Medicine Hematology; Visit Provider Internal Medicine Hematology
DX: C83.10 Mantle cell lymphoma, unspecified site (principal); E83.52 Hypercalcemia; C91.10 Chronic lymphocytic leukemia of B-cell type not having achieved remission
CPT/HCPCS: 78815; A9552

== ENCOUNTER 2024-10-24 13:02 | Outpatient (RCR) | payer MEDICARE, BC, SELFPAY ==
--- NOTE | 2024-10-31 01:44 | CTCFLWUP_ITS ---
Patient: CHERRY KANG : 1945 Page 5 of 7 FOLLOW UP NOTE DATE OF SERVICE: 10/20/2024 NAME: CHERRY KANG ACCOUNT: [id number] : 1945 AGE: 79 INTERVAL HISTORY: Patient have no new complaints. Patient had bone marrow biopsy negative. Patient here to discuss PET CT scan results from 09/27/2024 ONCOLOGY HISTORY:?[facility] Hx? DIAGNOSIS: Non-Hodgkin lymphoma, unspecified, unspecified site [ICD10] C85.90 DATE OF DIAGNOSIS: 07/16/2021 STAGE/TNM: Mantle cell lymphoma TREATMENT HISTORY: Care?Plan Start?Date Cycle Day Intent Rituxan?375?+?Bendamustine?90?Katherine 10/16/2021 1 28 Palliative KCL?20 01/08/2022 1 1 Palliative Rituximab?375mg/m*2?maint?q?2month 05/12/2022 1 60 Palliative zometa?q?30?days,?q?90?days?for?bone?mets 07/20/2024 1 90 Maintenance HISTORY OF PRESENT ILLNESS: Cherry Kang is a 79-year-old ENG speaking female with history of hypothyroidism gastroesophageal reflux disease referred to hematology clinic for lymphocytosis. 07/29/2019: WBC 9.7, absolute lymphocyte count 3.0, hemoglobin 13.1, MCV 94, platelets 404,000. 05/15/2020: WBC 12.2, absolute lymphocyte count 5.7, hemoglobin 13.8, platelets 390,000. 07/16/2021: WBC 87.1, absolute lymphocyte count 62.2, hemoglobin 13.8, platelets 417,000. 08/29/2021: Bone marrow biopsy and aspiration? 10/16/2021 - 03/12/2022: Ms. Kang was treated with 6 cycles of Bendamustine and rituximab. 04/15/2022: Bone marrow biopsy and aspiration? 04/21/2022: CT scan of the chest abdomen and pelvis with IV contrast 12/08/2022: CT scan of the chest abdomen and pelvis with IV contrast 12/26/2022: Ms. Kang was referred to Dr. Boudreaux. Dr Boudreaux's impression was thickened endometrium without any postmenopausal bleeding. Inactive endometrium by EMB. 08/05/2023: CT scan of the chest abdomen and pelvis with IV contrast? OTHER MEDICAL HISTORY/CONDITIONS: FAMILY HISTORY: ?Clone Family Hx? 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 amlodipine - 5 mg 1 tab Daily 2. escitalopram oxalate - 10 mg 1 tab Daily 3. hydroCHLOROthiazide - 12.5 mg 1 Capsule Daily 4. levothyroxine - 25 mcg 1 tab Daily 5. lisinopril - 20 mg 1 tab Daily 6. metoprolol tartrate - 50 mg 1 tab Twice a Day 7. pravastatin - 20 mg 1 tab Daily?Palabra Meds? Medications Last Reconciled by Delmi Holguin MD on 10/20/2024 ALLERGIES: Penicillins; Sulfa (Sulfonamide Antibiotics); erythromycin REVIEW OF SYSTEMS: A complete 14-point review of systems was performed and is negative except as noted in interval history. PHYSICAL EXAMINATION:?[facility] PE? VITAL SIGNS: Temperature?98.6, B/P?166/64, Oxygen?Saturation?98% Weight?188?lbs PAIN: 0 - No pain GENERAL APPEARANCE: Appears well, in no apparent distress, appropriately interactive. HEENT: Normocephalic, no temporal wasting, normal conjunctiva, no scleral icterus, normal hearing, lips without lesions, neck normal range of motion. CARDIOVASCULAR: Not assessed. PULMONARY: Normal respiratory effort, no respiratory distress or use of accessory muscles, speaking in full sentences, no tachypnea. EXTREMITIES: No pedal edema or cyanosis. SKIN: Normal skin appearance. NEUROLOGIC: Alert and oriented x4. PSHYCHIATRIC: Appropriate affect, mood normal, behavior normal, intact thought and speech. LABORATORY DATA: I have personally reviewed and interpreted each of the patient?s relevant lab tests, abnormal findings are below: Date 09/08/24 10/24/24 ??WHITE?BLOOD?COUNT?(Thou/mm3) 1.6?L 1.3?L ??RED?BLOOD?COUNT?(Miln/mm3) 3.80?L 3.94?L ??HEMOGLOBIN?(gm/dl) 12.1 12.4 ??HEMATOCRIT?(%) 33.6?L 35.0?L ??PLATELET?COUNT?(Thou/mm3) 280 248 ??NEUTROPHILS?%,?AUTO?(%) 37 38 ??LYMPH?%,?AUTO?(%) 29 32 ??NEUTROPHILS,?AUTO?(Thou/mm3) 0.6?L 0.5?L ??GLUCOSE,RANDOM?(mg/dL) ? 106 ??BLOOD?UREA?NITROGEN?(mg/dL) ? 9 ??CREATININE?(mg/dL) ? 0.60 ??SODIUM?(mmol/L) ? 137 ??POTASSIUM?(mmol/L) ? 3.9 ??CHLORIDE?(mmol/L) ? 100 ??CrCl?(CandG)?(ml/min) ? 83.41 ??AST/SGOT?(Unit/L) ? 18 ??ALT/SGPT?(Unit/L) ? 14 ??ALKALINE?PHOSPHATASE?(Unit/L) ? 55 ??BILIRUBIN,?TOTAL?(mg/dL) ? 0.7 ??PROTEIN?TOTAL?(gm/dl) ? 6.4 ??ALBUMIN,?SERUM?(gm/dl) ? 4.4 ??GLOBULIN?(gm/dl) ? 2.0?L ??ALBUMIN/GLOBULIN?RATIO ? 2.2 ??CALCIUM,?SERUM?(mg/dL) ? 10.0 ??CALCIUM?SERUM?(CORRECTED)?(mg/dL) ? 10.0 ??LDH,?TOTAL?(Unit/L) ? 194 ASSESSMENT/PLAN:?Jonnie Mendoza Assessment/Plan? 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 S/p 6 cycles of Bendamustine rituximab completed on 03/12/2022. Unable to tolerate ibrutinib Recent bone marrow biopsy and aspiration negative for mantle cell lymphoma. CT scans done on 08/05/2023 showed a 4 mm soft pulmonary nodule in the right upper lobe. No other tumors were noted. 01/07/2024 CT scan do not show any concerning pulmonary nodules as seen on the last scan. Advised patient that her nodules are too small even on July 2023 CT scan and do not require any follow-up Advised to get up to date vaccination as her ability to form good vaccine response is low Patient has been on maintenance rituximab and plan for total 2 years Patient was checked and do not have hepatitis B. Patient is found to be neutropenic Her white cell count has been decreasing since February Last treatment was in February 2024 with Rituxan Bone marrow biopsy, Dr. Santa I do not have a report available. Advised staff to get report as soon as possible PET CT scan results are negative Bone marrow biopsy results negative No recurrence I will see her back in the clinic in 6 month. Follow-up ORDERS: Order # Description [id number] Thyroid Stimulating Hormone + Assay Triiodothyronine (T3) [id number] Comprehensive Metabolic Panel - 12 + CBC with Auto Diff [id number] Comprehensive Metabolic Panel - 12 + CBC with Auto Diff [id number] Uric Acid, Serum [id number] Lactate Dehydrogenase (LDH) RETURN TO CLINIC: I reviewed the diagnosis, prognosis, and recommended treatment/procedure options with the patient (and/or their legal customer relations representative), including the potential benefits, risks, side effects and alternative therapies. We also discussed the option of no treatment and the possibility of clinical trial participation, if applicable. All questions were addressed, and they demonstrated understanding. They provided informed consent to proceed with the proposed plan of care. BILLING AND COMPLIANCE: I reviewed external records from providers outside my specialty as summarized above. I spent a total of 50 minutes on this patient?s care on the day of their visit excluding time spent related to any billed procedures. This time includes time spent with the patient as well as time spent documenting in the medical record, reviewing patients records and tests, obtaining history, placing orders, communicating with other healthcare professionals, counseling the patient, family or caregiver, and/or care coordination for the diagnoses above. Electronically Signed by: David Mendoza MD T: 1:41 AM CC: PCP: David Mendoza Referring: Andres Madrigal This document was completed utilizing speech recognition software. Grammatical errors, random word insertions, pronoun errors, and incomplete sentences are an occasional consequence of this system due to software limitations, ambient noise, and hardware issues. Any formal questions or concerns about the content, text or information contained within the body of this dictation should be directly addressed to the provider for clarification.
== END 2024-11-10 23:59 | disposition home or self-care (01) ==
LOC: SCTC 13:02
PROVIDERS: PCP Family Medicine; Referring Provider Internal Medicine Hematology & Oncology; Visit Provider Internal Medicine Hematology & Oncology
DX: C83.10 Mantle cell lymphoma, unspecified site (principal); R91.1 Solitary pulmonary nodule; D70.9 Neutropenia, unspecified
CPT/HCPCS: 96365; 99212; A4216; J3489; J7030; G0463

== ENCOUNTER → 2024-10-24 | Outpatient (CLI) | payer MEDICARE, BC, SELFPAY ==
[2024-10-24 11:18] LABS: Basophils # (Auto) 0.0 Thou/mm3 (0.0-0.2); Basophils % (Auto) 1 % (0-2.5); Eosinophils # (Auto) 0.1 Thou/mm3 (0.0-0.5); Eosinophils % (Auto) 4 % (0-10); Hematocrit 35.0 % (36.0-46.0); Hemoglobin 12.4 g/dL (12.0-16.0); Immature Granulocytes Auto 0.07 Thou/mm3 (0.00-0.00); Lymphocytes # (Auto) 0.4 Thou/mm3 (1.0-4.8); Lymphocytes % (Auto) 32 % (10-50); Mean Corpuscular HGB Conc 35.4 g/dl (31.0-37.0); Mean Corpuscular Hemoglobin 31.5 pg (25.0-35.0); Mean Corpuscular Volume 89 fL (80-100); Monocytes # (Auto) 0.3 Thou/mm3 (0.0-0.8); Monocytes % (Auto) 20 % (0-12); Neutrophils # (Auto) 0.5 Thou/mm3 (1.8-7.7); Neutrophils % (Auto) 38 % (37-80); Nucleated Red Blood Cell # 0.00 Thou/mm3 (0.00-0.00); Nucleated Red Blood Cell % 0 /100 WBC (0); Platelet Count 248 Thou/mm3 (140-440); RDW Standard Deviation 43.5 fL (36.4-46.3); Red Blood Count 3.94 Miln/mm3 (4.00-5.20)
[2024-10-24 11:31] LABS: Alanine Aminotransferase 14 U/L (10-49); Albumin, Serum 4.4 gm/dL (3.4-4.8); Albumin/Globulin Ratio 2.2 (1.2-2.2); Alkaline Phosphatase 55 U/L (46-116); Anion Gap 10 (7-16); Aspartate Amino Transferase 18 U/L (0-34); BUN/Creatinine Ratio 15 Ratio (12-20); Bilirubin,Total 0.7 mg/dL (0.3-1.2); Blood Urea Nitrogen 9 mg/dL (9-23); Calcium 10.0 mg/dL (8.3-10.6); Calcium (Corrected) 10.0 mg/dL (8.5-10.1); Carbon Dioxide 26.8 mMol/L (20.0-31.0); Chloride 100 mMol/L (98-107); Creatinine (Component) 0.6 mg/dL (0.6-1.3); Globulin 2.0 gm/dL (2.3-3.5); Glucose 106 mg/dL (74-106); LDH (Lactate Dehydrogenase) 194 U/L (120-246); Osmolality,Calculated 272 (275-295); Potassium 3.9 mMol/L (3.4-5.1); Sodium 137 mMol/L (136-145); Thyroid Stimulating Hormone 2.83 uIU/mL (0.55-4.78); Total Protein 6.4 gm/dL (5.7-8.2); Uric Acid 5.8 mg/dL (3.1-7.8); eGFR > 60 See Note
[2024-10-24 11:38] LABS: White Blood Count 1.3 Thou/mm3 (3.6-11.0)
[2024-10-24 18:11] LABS: Path Review Blood Smear Sent to Pathologist
[2024-10-31 08:12] LABS: T3,Total* 93 ng/dL (76-181)
== END | disposition home or self-care (01) ==
LOC: SCTO 10:16
PROVIDERS: PCP Family Medicine; Referring Provider Internal Medicine Hematology & Oncology; Visit Provider Internal Medicine Hematology & Oncology
DX: C85.90 Non-Hodgkin lymphoma, unspecified, unspecified site (principal)
CPT/HCPCS: 36415; 80053; 83615; 84443; 84480; 84550; 85025

== ENCOUNTER → 2024-11-29 | Outpatient (CLI) | payer MEDICARE, BC, SELFPAY ==
--- NOTE | 2024-11-29 12:30 | XR_ITS ---
Examination: Thyroid sonography complete TECHNIQUE: Grayscale sonographic images thyroid lobes,. Date and time: November 29, 2024 1255 hours INDICATIONS: Hypermetabolic bilateral thyroid lobes on PET CT scan September 27, 2024 FINDINGS: Right thyroid 4.5 cm Upper pole nodule 6 x 4 mm Midpole nodule 5 x 5 mm Left thyroid 4.8 cm Midpole nodule 4 x 4 mm IMPRESSION: Small thyroid nodules as above
== END | disposition home or self-care (01) ==
PROVIDERS: PCP Internal Medicine Hematology & Oncology; Referring Provider Internal Medicine Hematology & Oncology; Visit Provider Internal Medicine Hematology & Oncology
DX: E04.2 Nontoxic multinodular goiter (principal); C85.90 Non-Hodgkin lymphoma, unspecified, unspecified site
CPT/HCPCS: 76536

== ENCOUNTER → 2024-12-15 | Outpatient (CLI) | payer MEDICARE, BC, SELFPAY ==
--- NOTE | 2024-12-15 10:35 | XR_ITS ---
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
[2024-12-15 13:07] LABS: Basophils # (Auto) 0.0 Thou/mm3 (0.0-0.2); Basophils % (Auto) 1 % (0-2.5); Eosinophils # (Auto) 0.1 Thou/mm3 (0.0-0.5); Eosinophils % (Auto) 8 % (0-10); Hematocrit 35.4 % (36.0-46.0); Hemoglobin 12.0 g/dL (12.0-16.0); Immature Granulocytes Auto 0.06 Thou/mm3 (0.00-0.00); Lymphocytes # (Auto) 0.4 Thou/mm3 (1.0-4.8); Lymphocytes % (Auto) 27 % (10-50); Mean Corpuscular HGB Conc 33.9 g/dl (31.0-37.0); Mean Corpuscular Hemoglobin 31.4 pg (25.0-35.0); Mean Corpuscular Volume 93 fL (80-100); Monocytes # (Auto) 0.3 Thou/mm3 (0.0-0.8); Monocytes % (Auto) 22 % (0-12); Neutrophils # (Auto) 0.5 Thou/mm3 (1.8-7.7); Neutrophils % (Auto) 36 % (37-80); Nucleated Red Blood Cell # 0.00 Thou/mm3 (0.00-0.00); Nucleated Red Blood Cell % 0 /100 WBC (0); Platelet Count 289 Thou/mm3 (140-440); RDW Standard Deviation 43.7 fL (36.4-46.3); Red Blood Count 3.82 Miln/mm3 (4.00-5.20)
[2024-12-15 13:10] LABS: White Blood Count 1.4 Thou/mm3 (3.6-11.0)
[2024-12-15 13:24] LABS: Alanine Aminotransferase 13 U/L (10-49); Albumin, Serum 4.4 gm/dL (3.4-4.8); Albumin/Globulin Ratio 2.8 (1.2-2.2); Alkaline Phosphatase 51 U/L (46-116); Anion Gap 10 (7-16); Aspartate Amino Transferase 16 U/L (0-34); BUN/Creatinine Ratio 17 Ratio (12-20); Bilirubin,Total 0.6 mg/dL (0.3-1.2); Blood Urea Nitrogen 12 mg/dL (9-23); Calcium 10.8 mg/dL (8.3-10.6); Calcium (Corrected) 10.8 mg/dL (8.5-10.1); Carbon Dioxide 27.5 mMol/L (20.0-31.0); Chloride 100 mMol/L (98-107); Creatinine (Component) 0.7 mg/dL (0.6-1.3); Globulin 1.6 gm/dL (2.3-3.5); Glucose 100 mg/dL (74-106); Osmolality,Calculated 273 (275-295); Potassium 4.3 mMol/L (3.4-5.1); Sodium 137 mMol/L (136-145); Total Protein 6.0 gm/dL (5.7-8.2); eGFR > 60 See Note
== END | disposition home or self-care (01) ==
LOC: CDIM 10:26 → COPL 11:39 → SCTO 11:41
PROVIDERS: PCP Family Medicine; Referring Provider Internal Medicine Hematology & Oncology; Visit Provider Radiology Diagnostic Radiology
DX: M19.072 Primary osteoarthritis, left ankle and foot (principal); C85.90 Non-Hodgkin lymphoma, unspecified, unspecified site
CPT/HCPCS: 36415; 73630; 80053; 85025

== ENCOUNTER 2024-12-22 13:13 | Outpatient (RCR) | payer MEDICARE, BC, SELFPAY ==
--- NOTE | 2025-01-01 21:26 | CTCFLWUP_ITS ---
Patient: CHERRY KANG : 1945 Page 5 of 7 FOLLOW UP NOTE DATE OF SERVICE: 12/22/2024 NAME: CHERRY KANG ACCOUNT: [id number] : 1945 AGE: 79 INTERVAL HISTORY: Patient have no new complaints. Patient had bone marrow biopsy negative. 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 DIAGNOSIS: Non-Hodgkin lymphoma, unspecified, unspecified site [ICD10] C85.90 DATE OF DIAGNOSIS: 07/16/2021 STAGE/TNM: Mantle cell lymphoma TREATMENT HISTORY: Care?Plan Start?Date Cycle Day Intent Rituxan?375?+?Bendamustine?90?Katherine 10/16/2021 1 28 Palliative KCL?20 01/08/2022 1 1 Palliative Rituximab?375mg/m*2?maint?q?2month 05/12/2022 1 60 Palliative zometa?q?30?days,?q?90?days?for?bone?mets 07/20/2024 1 90 Maintenance HISTORY OF PRESENT ILLNESS: Cherry Kang is a 79-year-old ENG speaking female with history of hypothyroidism gastroesophageal reflux disease referred to hematology clinic for lymphocytosis. 07/29/2019: WBC 9.7, absolute lymphocyte count 3.0, hemoglobin 13.1, MCV 94, platelets 404,000. 05/15/2020: WBC 12.2, absolute lymphocyte count 5.7, hemoglobin 13.8, platelets 390,000. 07/16/2021: WBC 87.1, absolute lymphocyte count 62.2, hemoglobin 13.8, platelets 417,000. 08/29/2021: Bone marrow biopsy and aspiration? 10/16/2021 - 03/12/2022: Ms. Kang was treated with 6 cycles of Bendamustine and rituximab. 04/15/2022: Bone marrow biopsy and aspiration? 04/21/2022: CT scan of the chest abdomen and pelvis with IV contrast 12/08/2022: CT scan of the chest abdomen and pelvis with IV contrast 12/26/2022: Ms. Kang was referred to Dr. Boudreaux. Dr Boudreaux's impression was thickened endometrium without any postmenopausal bleeding. Inactive endometrium by EMB. 08/05/2023: CT scan of the chest abdomen and pelvis with IV contrast? OTHER MEDICAL HISTORY/CONDITIONS: FAMILY HISTORY: ?Clone Family Hx? 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 amlodipine - 5 mg 1 tab Daily 2. escitalopram oxalate - 10 mg 1 tab Daily 3. hydroCHLOROthiazide - 12.5 mg 1 Capsule Daily 4. levothyroxine - 25 mcg 1 tab Daily 5. lisinopril - 20 mg 1 tab Daily 6. metoprolol tartrate - 50 mg 1 tab Twice a Day 7. pravastatin - 20 mg 1 tab Daily?Palabra Meds? Medications Last Reconciled by Delmi Holguin MD on 12/22/2024 ALLERGIES: Penicillins; Sulfa (Sulfonamide Antibiotics); erythromycin REVIEW OF SYSTEMS: A complete 14-point review of systems was performed and is negative except as noted in interval history. PHYSICAL EXAMINATION:?[facility] PE? VITAL SIGNS: Temperature?98.1, B/P?136/66, Oxygen?Saturation?97% Weight?194?lbs PAIN: 0 - No pain ECOG Performance Status: 0 - Asymptomatic and fully active GENERAL APPEARANCE: Appears well, in no apparent distress, appropriately interactive. HEENT: Normocephalic, no temporal wasting, normal conjunctiva, no scleral icterus, normal hearing, lips without lesions, neck normal range of motion. CARDIOVASCULAR: Not assessed. PULMONARY: Normal respiratory effort, no respiratory distress or use of accessory muscles, speaking in full sentences, no tachypnea. EXTREMITIES: No pedal edema or cyanosis. SKIN: Normal skin appearance. NEUROLOGIC: Alert and oriented x4. PSHYCHIATRIC: Appropriate affect, mood normal, behavior normal, intact thought and speech. LABORATORY DATA: I have personally reviewed and interpreted each of the patient?s relevant lab tests, abnormal findings are below: Date 10/24/24 12/15/24 ??WHITE?BLOOD?COUNT?(Thou/mm3) ? 1.4?LL ??RED?BLOOD?COUNT?(Miln/mm3) ? 3.82?L ??HEMOGLOBIN?(gm/dl) ? 12.0 ??HEMATOCRIT?(%) ? 35.4?L ??PLATELET?COUNT?(Thou/mm3) ? 289 ??NEUTROPHILS?%,?AUTO?(%) ? 36?L ??LYMPH?%,?AUTO?(%) ? 27 ??NEUTROPHILS,?AUTO?(Thou/mm3) ? 0.5?L ??GLUCOSE,RANDOM?(mg/dL) 106 100 ??BLOOD?UREA?NITROGEN?(mg/dL) 9 12 ??CREATININE?(mg/dL) 0.60 0.70 ??SODIUM?(mmol/L) 137 137 ??POTASSIUM?(mmol/L) 3.9 4.3 ??CHLORIDE?(mmol/L) 100 100 ??CrCl?(CandG)?(ml/min) 83.41 72.08 ??AST/SGOT?(Unit/L) 18 16 ??ALT/SGPT?(Unit/L) 14 13 ??ALKALINE?PHOSPHATASE?(Unit/L) 55 51 ??BILIRUBIN,?TOTAL?(mg/dL) 0.7 0.6 ??PROTEIN?TOTAL?(gm/dl) 6.4 6.0 ??ALBUMIN,?SERUM?(gm/dl) 4.4 4.4 ??GLOBULIN?(gm/dl) 2.0?L 1.6?L ??ALBUMIN/GLOBULIN?RATIO 2.2 2.8?H ??CALCIUM,?SERUM?(mg/dL) 10.0 10.8?H ??CALCIUM?SERUM?(CORRECTED)?(mg/dL) 10.0 10.8?H ??LDH,?TOTAL?(Unit/L) 194 ? ASSESSMENT/PLAN:?[facility] Assessment/Plan? 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 S/p 6 cycles of Bendamustine rituximab completed on 03/12/2022. Unable to tolerate ibrutinib Recent bone marrow biopsy and aspiration negative for mantle cell lymphoma. CT scans done on 08/05/2023 showed a 4 mm soft pulmonary nodule in the right upper lobe. No other tumors were noted. 01/07/2024 CT scan do not show any concerning pulmonary nodules as seen on the last scan. Advised patient that her nodules are too small even on July 2023 CT scan and do not require any follow-up Advised to get up to date vaccination as her ability to form good vaccine response is low Patient has been on maintenance rituximab and plan for total 2 years Patient was checked and do not have hepatitis B. Patient is found to be neutropenic Her white cell count has been decreasing since February Last treatment was in February 2024 with Rituxan Bone marrow biopsy, Dr. Santa I do not have a report available. Advised staff to get report as soon as possible PET CT scan results are negative Bone marrow biopsy results negative No recurrence I will see her back in the clinic in 6 month. Follow-up ORDERS: Order # Description [id number] Comprehensive Metabolic Panel - 12 + CBC with Auto Diff + MD Follow Up 2 Months [id number] Flowcytometry [id number] Erythropoieten Level RETURN TO CLINIC: I reviewed the diagnosis, prognosis, and recommended treatment/procedure options with the patient (and/or their legal community health representative), including the potential benefits, risks, side effects and alternative therapies. We also discussed the option of no treatment and the possibility of clinical trial participation, if applicable. All questions were addressed, and they demonstrated understanding. They provided informed consent to proceed with the proposed plan of care. BILLING AND COMPLIANCE: I reviewed external records from providers outside my specialty as summarized above. I spent a total of 50 minutes on this patient?s care on the day of their visit excluding time spent related to any billed procedures. This time includes time spent with the patient as well as time spent documenting in the medical record, reviewing patients records and tests, obtaining history, placing orders, communicating with other healthcare professionals, counseling the patient, family or caregiver, and/or care coordination for the diagnoses above. Electronically Signed by: David Mendoza MD T: 9:22 PM CC: PCP: Andres Madrigal Referring: Andres Madrigal This document was completed utilizing speech recognition software. Grammatical errors, random word insertions, pronoun errors, and incomplete sentences are an occasional consequence of this system due to software limitations, ambient noise, and hardware issues. Any formal questions or concerns about the content, text or information contained within the body of this dictation should be directly addressed to the provider for clarification.
== END 2025-01-10 23:59 | disposition home or self-care (01) ==
LOC: SCTC 13:13
PROVIDERS: PCP Family Medicine; Referring Provider Family Medicine; Visit Provider Internal Medicine Hematology & Oncology
DX: Z08 Encounter for follow-up examination after completed treatment for malignant neoplasm (principal); Z85.72 Personal history of non-Hodgkin lymphomas; Z92.21 Personal history of antineoplastic chemotherapy; R91.1 Solitary pulmonary nodule; D70.9 Neutropenia, unspecified
CPT/HCPCS: 99212; G0463

== ENCOUNTER → 2025-01-26 | Outpatient (CLI) | payer MEDICARE, BC, SELFPAY ==
[2025-01-26 09:21] LABS: Flow Cytometry* See Sep Rpt
[2025-01-26 09:42] LABS: Basophils # (Auto) 0.0 Thou/mm3 (0.0-0.2); Basophils % (Auto) 1 % (0-2.5); Eosinophils # (Auto) 0.2 Thou/mm3 (0.0-0.5); Eosinophils % (Auto) 4 % (0-10); Hematocrit 37.0 % (36.0-46.0); Hemoglobin 12.5 g/dL (12.0-16.0); Immature Granulocytes Auto 0.02 Thou/mm3 (0.00-0.00); Lymphocytes # (Auto) 0.5 Thou/mm3 (1.0-4.8); Lymphocytes % (Auto) 10 % (10-50); Mean Corpuscular HGB Conc 33.8 g/dl (31.0-37.0); Mean Corpuscular Hemoglobin 31.0 pg (25.0-35.0); Mean Corpuscular Volume 92 fL (80-100); Monocytes # (Auto) 0.4 Thou/mm3 (0.0-0.8); Monocytes % (Auto) 8 % (0-12); Neutrophils # (Auto) 3.6 Thou/mm3 (1.8-7.7); Neutrophils % (Auto) 77 % (37-80); Nucleated Red Blood Cell # 0.00 Thou/mm3 (0.00-0.00); Nucleated Red Blood Cell % 0 /100 WBC (0); Platelet Count 236 Thou/mm3 (140-440); RDW Standard Deviation 43.4 fL (36.4-46.3); Red Blood Count 4.03 Miln/mm3 (4.00-5.20); White Blood Count 4.7 Thou/mm3 (3.6-11.0)
[2025-01-26 10:03] LABS: Alanine Aminotransferase 14 U/L (10-49); Albumin, Serum 4.3 gm/dL (3.4-4.8); Albumin/Globulin Ratio 2.5 (1.2-2.2); Alkaline Phosphatase 51 U/L (46-116); Anion Gap 10 (7-16); Aspartate Amino Transferase 22 U/L (0-34); BUN/Creatinine Ratio 10 Ratio (12-20); Bilirubin,Total 0.4 mg/dL (0.3-1.2); Blood Urea Nitrogen 7 mg/dL (9-23); Calcium 9.9 mg/dL (8.3-10.6); Calcium (Corrected) 9.9 mg/dL (8.5-10.1); Carbon Dioxide 25.4 mMol/L (20.0-31.0); Chloride 99 mMol/L (98-107); Creatinine (Component) 0.7 mg/dL (0.6-1.3); Globulin 1.7 gm/dL (2.3-3.5); Glucose 99 mg/dL (74-106); Osmolality,Calculated 266 (275-295); Potassium 4.0 mMol/L (3.4-5.1); Sodium 134 mMol/L (136-145); Total Protein 6.0 gm/dL (5.7-8.2); eGFR > 60 See Note
[2025-01-30 06:42] LABS: Erythropoietin (EPO)* 12.0 mIU/mL (2.6-18.5)
== END | disposition home or self-care (01) ==
LOC: SCTO 08:54
PROVIDERS: PCP Family Medicine; Referring Provider Internal Medicine Hematology & Oncology; Visit Provider Internal Medicine Hematology & Oncology
DX: C85.90 Non-Hodgkin lymphoma, unspecified, unspecified site (principal)
CPT/HCPCS: 36415; 80053; 82668; 85025

== ENCOUNTER → 2025-02-23 | Outpatient (CLI) | payer MEDICARE, BC, SELFPAY ==
[2025-02-23 10:39] LABS: Basophils # (Auto) 0.0 Thou/mm3 (0.0-0.2); Basophils % (Auto) 1 % (0-2.5); Eosinophils # (Auto) 0.2 Thou/mm3 (0.0-0.5); Eosinophils % (Auto) 3 % (0-10); Hematocrit 37.7 % (36.0-46.0); Hemoglobin 12.7 g/dL (12.0-16.0); Immature Granulocytes Auto 0.02 Thou/mm3 (0.00-0.00); Lymphocytes # (Auto) 0.9 Thou/mm3 (1.0-4.8); Lymphocytes % (Auto) 16 % (10-50); Mean Corpuscular HGB Conc 33.7 g/dl (31.0-37.0); Mean Corpuscular Hemoglobin 30.5 pg (25.0-35.0); Mean Corpuscular Volume 91 fL (80-100); Monocytes # (Auto) 0.5 Thou/mm3 (0.0-0.8); Monocytes % (Auto) 9 % (0-12); Neutrophils # (Auto) 3.9 Thou/mm3 (1.8-7.7); Neutrophils % (Auto) 71 % (37-80); Nucleated Red Blood Cell # 0.00 Thou/mm3 (0.00-0.00); Nucleated Red Blood Cell % 0 /100 WBC (0); Platelet Count 325 Thou/mm3 (140-440); RDW Standard Deviation 42.5 fL (36.4-46.3); Red Blood Count 4.16 Miln/mm3 (4.00-5.20); White Blood Count 5.5 Thou/mm3 (3.6-11.0)
== END | disposition home or self-care (01) ==
LOC: SCTO 09:39
PROVIDERS: PCP Family Medicine; Referring Provider Internal Medicine Hematology & Oncology; Visit Provider Internal Medicine Hematology & Oncology
DX: C85.90 Non-Hodgkin lymphoma, unspecified, unspecified site (principal)
CPT/HCPCS: 36415; 85025

== ENCOUNTER 2025-02-27 13:03 | Outpatient (RCR) | payer MEDICARE, BC, SELFPAY ==
--- NOTE | 2025-02-26 20:21 | CTCFLWUP_ITS ---
Patient: CHERRY KANG : 1945 Page 6 of 7 FOLLOW UP NOTE DATE OF SERVICE: 02/23/2025 NAME: CHERRY KANG ACCOUNT: [id number] : 1945 AGE: 79 INTERVAL HISTORY: Patient have no new complaints. Patient had bone marrow biopsy negative. 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 and no osteolytic lesions or cortical elevation 11/29/2024 ultrasound showed small thyroid nodules less than 5 mm 10/24/2024 peripheral blood showed no evidence of leukemia Patient's CBC reviewed and is now almost normal ONCOLOGY HISTORY: DIAGNOSIS: Non-Hodgkin lymphoma, unspecified, unspecified site [ICD10] C85.90 DATE OF DIAGNOSIS: 07/16/2021 STAGE/TNM: Mantle cell lymphoma TREATMENT HISTORY: Care?Plan Start?Date Cycle Day Intent Rituxan?375?+?Bendamustine?90?Katherine 10/16/2021 1 28 Palliative KCL?20 01/08/2022 1 1 Palliative Rituximab?375mg/m*2?maint?q?2month 05/12/2022 1 60 Palliative zometa?q?30?days,?q?90?days?for?bone?mets 07/20/2024 1 90 Maintenance HISTORY OF PRESENT ILLNESS: Cherry Kang is a 79-year-old ENG speaking female with history of hypothyroidism gastroesophageal reflux disease referred to hematology clinic for lymphocytosis. 07/29/2019: WBC 9.7, absolute lymphocyte count 3.0, hemoglobin 13.1, MCV 94, platelets 404,000. 05/15/2020: WBC 12.2, absolute lymphocyte count 5.7, hemoglobin 13.8, platelets 390,000. 07/16/2021: WBC 87.1, absolute lymphocyte count 62.2, hemoglobin 13.8, platelets 417,000. 08/29/2021: Bone marrow biopsy and aspiration? 10/16/2021 - 03/12/2022: Ms. Kang was treated with 6 cycles of Bendamustine and rituximab. 04/15/2022: Bone marrow biopsy and aspiration? 04/21/2022: CT scan of the chest abdomen and pelvis with IV contrast 12/08/2022: CT scan of the chest abdomen and pelvis with IV contrast 12/26/2022: Ms. Kang was referred to Dr. Boudreaux. Dr Boudreaux's impression was thickened endometrium without any postmenopausal bleeding. Inactive endometrium by EMB. 08/05/2023: CT scan of the chest abdomen and pelvis with IV contrast? 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 amLODIPine - 2.5 mg 1 tab Daily 2. escitalopram oxalate - 10 mg 1 tab Daily 3. hydroCHLOROthiazide - 12.5 mg 1 Capsule Daily 4. levothyroxine - 25 mcg 1 tab Daily 5. lisinopril - 20 mg 1 tab Daily 6. metoprolol tartrate - 50 mg 1 tab Twice a Day 7. pravastatin - 20 mg 1 tab Daily Medications Last Reconciled by Delmi Dillard MA on 02/23/2025 ALLERGIES: Penicillins; Sulfa (Sulfonamide Antibiotics); erythromycin REVIEW OF SYSTEMS: A complete 14-point review of systems was performed and is negative except as noted in interval history. PHYSICAL EXAMINATION: VITAL SIGNS: Temperature?98.3, B/P?131/69, Oxygen?Saturation?94% Weight?192?lbs PAIN: 0 - No pain ECOG Performance Status: 1 - Symptomatic; ambulatory; restricted in strenuous activity GENERAL APPEARANCE: Appears well, in no apparent distress, appropriately interactive. HEENT: Normocephalic, no temporal wasting, normal conjunctiva, no scleral icterus, normal hearing, lips without lesions, neck normal range of motion. CARDIOVASCULAR: Not assessed. PULMONARY: Normal respiratory effort, no respiratory distress or use of accessory muscles, speaking in full sentences, no tachypnea. EXTREMITIES: No pedal edema or cyanosis. SKIN: Normal skin appearance. NEUROLOGIC: Alert and oriented x4. PSHYCHIATRIC: Appropriate affect, mood normal, behavior normal, intact thought and speech. LABORATORY DATA: I have personally reviewed and interpreted each of the patient?s relevant lab tests, abnormal findings are below: Date 12/15/24 01/26/25 02/23/25 ??WHITE?BLOOD?COUNT?(Thou/mm3) 1.4?LL 4.7 5.5 ??RED?BLOOD?COUNT?(Miln/mm3) 3.82?L 4.03 4.16 ??HEMOGLOBIN?(gm/dl) 12.0 12.5 12.7 ??HEMATOCRIT?(%) 35.4?L 37.0 37.7 ??PLATELET?COUNT?(Thou/mm3) 289 236 325 ??NEUTROPHILS?%,?AUTO?(%) 36?L 77 71 ??LYMPH?%,?AUTO?(%) 27 10 16 ??NEUTROPHILS,?AUTO?(Thou/mm3) 0.5?L 3.6 3.9 ??GLUCOSE,RANDOM?(mg/dL) ? 99 ? ??BLOOD?UREA?NITROGEN?(mg/dL) ? 7?L ? ??CREATININE?(mg/dL) ? 0.70 ? ??SODIUM?(mmol/L) ? 134?L ? ??POTASSIUM?(mmol/L) ? 4.0 ? ??CHLORIDE?(mmol/L) ? 99 ? ??CrCl?(CandG)?(ml/min) ? 72.59 ? ??AST/SGOT?(Unit/L) ? 22 ? ??ALT/SGPT?(Unit/L) ? 14 ? ??ALKALINE?PHOSPHATASE?(Unit/L) ? 51 ? ??BILIRUBIN,?TOTAL?(mg/dL) ? 0.4 ? ??PROTEIN?TOTAL?(gm/dl) ? 6.0 ? ??ALBUMIN,?SERUM?(gm/dl) ? 4.3 ? ??GLOBULIN?(gm/dl) ? 1.7?L ? ??ALBUMIN/GLOBULIN?RATIO ? 2.5?H ? ??CALCIUM,?SERUM?(mg/dL) ? 9.9 ? ??CALCIUM?SERUM?(CORRECTED)?(mg/dL) ? 9.9 ? 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 S/p 6 cycles of Bendamustine rituximab completed on 03/12/2022. Unable to tolerate ibrutinib Recent bone marrow biopsy and aspiration negative for mantle cell lymphoma. CT scans done on 08/05/2023 showed a 4 mm soft pulmonary nodule in the right upper lobe. No other tumors were noted. 01/07/2024 CT scan do not show any concerning pulmonary nodules as seen on the last scan. Advised patient that her nodules are too small even on July 2023 CT scan and do not require any follow-up Advised to get up to date vaccination as her ability to form good vaccine response is low Patient has been on maintenance rituximab and plan for total 2 years Patient was checked and do not have hepatitis B. Patient is found to be neutropenic Her white cell count has been decreasing since February Last treatment was in February 2024 with Rituxan Bone marrow biopsy, negative. No recurrence Cell counts have recovered ORDERS: Order # Description [id number] Comprehensive Metabolic Panel - 12 + MD Follow Up 3 Months [id number] CBC with Auto Diff RETURN TO CLINIC: I reviewed the diagnosis, prognosis, and recommended treatment/procedure options with the patient (and/or their legal desk representative), including the potential benefits, risks, side effects and alternative therapies. We also discussed the option of no treatment and the possibility of clinical trial participation, if applicable. All questions were addressed, and they demonstrated understanding. They provided informed consent to proceed with the proposed plan of care. BILLING AND COMPLIANCE: I reviewed external records from providers outside my specialty as summarized above. I spent a total of 50 minutes on this patient?s care on the day of their visit excluding time spent related to any billed procedures. This time includes time spent with the patient as well as time spent documenting in the medical record, reviewing patients records and tests, obtaining history, placing orders, communicating with other healthcare professionals, counseling the patient, family or caregiver, and/or care coordination for the diagnoses above. Electronically Signed by: {Object.Sanct_ID*[email or web address]@M}, {Object.Sanct_ID*PnP.Suffix@U} D: {Object.Sanct_Date} T: {Object.Sanct_Time} CC: PCP: Andres Madrigal Referring: Andres Madrigal This document was completed utilizing speech recognition software. Grammatical errors, random word insertions, pronoun errors, and incomplete sentences are an occasional consequence of this system due to software limitations, ambient noise, and hardware issues. Any formal questions or concerns about the content, text or information contained within the body of this dictation should be directly addressed to the provider for clarification.
[2025-02-27 13:53] LABS: Basophils # (Auto) 0.0 Thou/mm3 (0.0-0.2); Basophils % (Auto) 1 % (0-2.5); Eosinophils # (Auto) 0.2 Thou/mm3 (0.0-0.5); Eosinophils % (Auto) 4 % (0-10); Hematocrit 36.3 % (36.0-46.0); Hemoglobin 12.6 g/dL (12.0-16.0); Immature Granulocytes Auto 0.01 Thou/mm3 (0.00-0.00); Lymphocytes # (Auto) 0.9 Thou/mm3 (1.0-4.8); Lymphocytes % (Auto) 17 % (10-50); Mean Corpuscular HGB Conc 34.7 g/dl (31.0-37.0); Mean Corpuscular Hemoglobin 31.4 pg (25.0-35.0); Mean Corpuscular Volume 91 fL (80-100); Monocytes # (Auto) 0.4 Thou/mm3 (0.0-0.8); Monocytes % (Auto) 8 % (0-12); Neutrophils # (Auto) 3.7 Thou/mm3 (1.8-7.7); Neutrophils % (Auto) 70 % (37-80); Nucleated Red Blood Cell # 0.00 Thou/mm3 (0.00-0.00); Nucleated Red Blood Cell % 0 /100 WBC (0); Platelet Count 323 Thou/mm3 (140-440); RDW Standard Deviation 41.9 fL (36.4-46.3); Red Blood Count 4.01 Miln/mm3 (4.00-5.20); White Blood Count 5.2 Thou/mm3 (3.6-11.0)
[2025-02-27 14:12] LABS: Alanine Aminotransferase 14 U/L (10-49); Albumin, Serum 4.7 gm/dL (3.4-4.8); Albumin/Globulin Ratio 3.6 (1.2-2.2); Alkaline Phosphatase 55 U/L (46-116); Anion Gap 7 (7-16); Aspartate Amino Transferase 15 U/L (0-34); BUN/Creatinine Ratio 20 Ratio (12-20); Bilirubin,Total 0.5 mg/dL (0.3-1.2); Blood Urea Nitrogen 12 mg/dL (9-23); Calcium 10.4 mg/dL (8.3-10.6); Calcium (Corrected) 10.4 mg/dL (8.5-10.1); Carbon Dioxide 28.7 mMol/L (20.0-31.0); Chloride 100 mMol/L (98-107); Creatinine (Component) 0.6 mg/dL (0.6-1.3); Globulin 1.3 gm/dL (2.3-3.5); Glucose 112 mg/dL (74-106); Osmolality,Calculated 272 (275-295); Potassium 3.8 mMol/L (3.4-5.1); Sodium 136 mMol/L (136-145); Total Protein 6.0 gm/dL (5.7-8.2); eGFR > 60 See Note
== END 2025-03-12 23:59 | disposition home or self-care (01) ==
LOC: SCTC 13:03
PROVIDERS: PCP Family Medicine; Referring Provider Family Medicine; Visit Provider Internal Medicine Hematology & Oncology
DX: Z08 Encounter for follow-up examination after completed treatment for malignant neoplasm (principal); Z85.72 Personal history of non-Hodgkin lymphomas; Z92.21 Personal history of antineoplastic chemotherapy
CPT/HCPCS: 80053; 85025; 96365; 99212; J3489; J7040; G0463

== ENCOUNTER 2025-03-15 12:51 | Emergency (ER) | payer MEDICARE, BC, SELFPAY ==
[2025-03-15 13:19] VITALS: BP 184/78; PULSE 81; RESP 18; TEMP 36.7; O2SAT 98
--- NOTE | 2025-03-15 13:22 | EKG_ITS ---
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: : 1945 Requested By: Magen Barahona Order Number: [id number] Reading MD: Magen Barahona Measurements Intervals [place] Rate: 78 P: 41 WV: 197 QRS: -35 QRSD: 91 T: 3 QT: 373 QTc: 427 Interpretive Statements SINUS RHYTHM LEFT AXIS DEVIATION [QRS AXIS < -30] LOW QRS VOLTAGE IN PRECORDIAL LEADS [QRS DEFLECTION < 1.0 mV IN CHEST LEADS] ANTEROSEPTAL MYOCARDIAL INFARCTION , OF INDETERMINATE AGE [40+ ms Q WAVE IN V1-V4] Compared to ECG 10/28/2021 17:51:13 Left-axis deviation now present Low QRS voltage now present Left anterior fascicular block no longer present Myocardial infarct finding still present /store/S0/[id number]/ecg/[id number].pdf
--- NOTE | 2025-03-15 13:24 | PD.EDRME ---
Rapid Medical Screening Exam RME Arrival date/time: 03/15/25 12:51 79-year-old female with history anxiety reports with complaints of chest pain and generally not feeling well times few hours Chief Complaint: General Adult/Misc Complain Time Seen by Provider: 03/15/25 13:15 Vital signs: Vital Signs Temperature 98.1 F 03/15/25 13:19 Pulse Rate 81 03/15/25 13:19 Respiratory Rate 18 03/15/25 13:19 Blood Pressure 184/78 H 03/15/25 13:19 Pulse Oximetry (%) 98 03/15/25 13:19 Oxygen Delivery Method Room Air 03/15/25 13:19 Exam: - Clinical Impression: -
[2025-03-15 14:10] LABS: Basophils # (Auto) 0.0 Thou/mm3 (0.0-0.2); Basophils % (Auto) 0 % (0-2.5); Eosinophils # (Auto) 0.1 Thou/mm3 (0.0-0.5); Eosinophils % (Auto) 2 % (0-10); Hematocrit 37.3 % (36.0-46.0); Hemoglobin 12.9 g/dL (12.0-16.0); Immature Granulocytes Auto 0.01 Thou/mm3 (0.00-0.00); Lymphocytes # (Auto) 0.7 Thou/mm3 (1.0-4.8); Lymphocytes % (Auto) 11 % (10-50); Mean Corpuscular HGB Conc 34.6 g/dl (31.0-37.0); Mean Corpuscular Hemoglobin 31.5 pg (25.0-35.0); Mean Corpuscular Volume 91 fL (80-100); Monocytes # (Auto) 0.5 Thou/mm3 (0.0-0.8); Monocytes % (Auto) 7 % (0-12); Neutrophils # (Auto) 5.4 Thou/mm3 (1.8-7.7); Neutrophils % (Auto) 80 % (37-80); Nucleated Red Blood Cell # 0.00 Thou/mm3 (0.00-0.00); Nucleated Red Blood Cell % 0 /100 WBC (0); Platelet Count 290 Thou/mm3 (140-440); RDW Standard Deviation 42.8 fL (36.4-46.3); Red Blood Count 4.10 Miln/mm3 (4.00-5.20); White Blood Count 6.7 Thou/mm3 (3.6-11.0)
[2025-03-15 14:28] LABS: Alanine Aminotransferase 17 U/L (10-49); Albumin, Serum 4.9 gm/dL (3.4-4.8); Albumin/Globulin Ratio 2.6 (1.2-2.2); Alkaline Phosphatase 57 U/L (46-116); Anion Gap 7 (7-16); Aspartate Amino Transferase 17 U/L (0-34); BUN/Creatinine Ratio 17 Ratio (12-20); Bilirubin,Total 0.5 mg/dL (0.3-1.2); Blood Urea Nitrogen 12 mg/dL (9-23); Calcium 10.4 mg/dL (8.3-10.6); Calcium (Corrected) 10.4 mg/dL (8.5-10.1); Carbon Dioxide 28.3 mMol/L (20.0-31.0); Chloride 100 mMol/L (98-107); Creatinine (Component) 0.7 mg/dL (0.6-1.3); Globulin 1.9 gm/dL (2.3-3.5); Glucose 119 mg/dL (74-106); Osmolality,Calculated 270 (275-295); Potassium 3.6 mMol/L (3.4-5.1); Sodium 135 mMol/L (136-145); Total Protein 6.8 gm/dL (5.7-8.2); Troponin I < 0.020 ng/mL (0.0-0.045); eGFR > 60 See Note
--- NOTE | 2025-03-15 17:28 | XR_ITS ---
EXAMINATION: PA lateral chest 2 views TECHNIQUE: Upright PA lateral chest 2 views Date and time: March 15, 2025, 1737 hours, comparison October 28, 2021 INDICATIONS: Chest pain today FINDINGS: Normal heart size Lungs are clear The osseous structures are intact IMPRESSION: No active disease
[2025-03-15 17:30] VITALS: BP 209/105; PULSE 83; O2SAT 98
--- NOTE | 2025-03-15 17:47 | PD.EDCHEST ---
ED Chest Pain RME/HPI General Chief Complaint: General Adult/Misc Complain Stated Complaint: FLUSHED FEELING OVER WHOLE BODY; HIGH BP Time Seen by Provider: 03/15/25 13:15 Arrival date/time: 03/15/25 12:51 RME / HPI RME / HPI narrative: 03/15/25 12:51 79-year-old female with history anxiety reports with complaints of chest pain and generally not feeling well times few hours DR. HIDALGO MAIN ED EVALUATION: Patient presents with an episode in which she experienced dysesthesia diffusely involving upper chest and BUE onset of approximately 1 hour [employer]. Denies Shortness of breath, lightheadedness, dizziness, vomiting, or diarrhea. Patient reports blood pressure in the 170-180 systolic range at home prompting presenting to ED. PMH: HTN, CLL-currative phase, Edema, Hypertension, Gastroesophageal Reflux Disease, Arthritis, Carpal Tunnel Syndrome, Cataracts, Hypothyroidism, Anemia, Anxiety PSH: Negative Allergies: Sulfa, Penicillins, Azithromycin Social: Occasional alcohol, no tobacco or illicit drug abuse Exam: - Impression: - Related Data Home Medications ?Medication ?Instructions ?Recorded ?Confirmed pravastatin 20 mg tablet 20 mg PO QDAY 12/25/17 12/08/23 amlodipine 5 mg tablet 5 mg PO QDAY 08/27/21 12/08/23 escitalopram oxalate 10 mg tablet 1 tab PO QDAY 10/07/21 12/08/23 levothyroxine 25 mcg tablet 1 tab PO QAM 10/07/21 12/08/23 metoprolol tartrate 50 mg tablet 1 tab PO BIDWM 10/07/21 12/08/23 lisinopril 10 mg tablet 10 mg PO QDAY 04/15/22 12/08/23 Previous Rx's ?Medication ?Instructions ?Recorded alprazolam 0.25 mg tablet 0.25 mg PO BID PRN anxiety #10 tabs 03/15/25 clonidine HCl 0.1 mg tablet 0.1 mg PO BID #10 tabs 03/15/25 Allergies Allergy/AdvReac Type Severity Reaction Status Date / Time Sulfa (Sulfonamide Allergy Severe Rash Verified 03/15/25 12:54 Antibiotics) azithromycin Allergy Mild UPSET Verified 03/15/25 12:54 STOMACH Penicillins Allergy Mild RASH Verified 03/15/25 12:54 Review of Systems Review of Systems Systems Reviewed: All systems reviewed, normal except as documented Past Medical History Past Medical History CARDIAC: Positive Cardiac Disorders, Edema and Hypertension RESPIRATORY: Positive Bronchitis GASTROINTESTINAL: Positive Gastrointestinal Disorders and Gastroesophageal Reflux Disease REPRODUCTIVE: Positive Previous Pregnancies (x2) MUSCULOSKELETAL: Positive Arthritis and Carpal Tunnel Syndrome (bilateral) ENT: Positive Cataracts (bilateral) ENDOCRINE: Positive Endocrine Disorders and Hypothyroidism HEMATOLOGIC: Positive Blood Disorders, Anemia and Leukemia PSYCHO/SOCIAL: Positive Anxiety OTHER HISTORY: Positive Hospitalization, Falls, Chemotherapy, Chicken Pox, Measles and Cancer Family History FAMILY HISTORY: Positive Family Cardiac Disorders, Family Cancer and Family Surgery Surgical History SURGICAL: Positive Arthroscopy (left thumb) ED Exam Narrative Physical exam: GEN. APPEARANCE: The patient is alert awake oriented X-3 notably hypertensive, lying down comfortably, does not look ill/toxic. Patient has good eye contact. Patient is cooperative. VITALS: All vitals were reviewed and the pulse ox is 81%, which is low according to my interpretation HEENT: Normocephalic, atraumatic and nontender. Pupils are equal and reactive. Oral mucosa is moist. NECK: Supple, nontender, no meningismus, no JVD. There is no thyromegaly and no lymphadenopathy. CHEST: Nontender on palpation no deformity and no crepitus. CARDIOVASCULAR: Heart regular rhythm, no murmur or gallop rub or extra beats. LUNGS: Clear to auscultation bilaterally with symmetrical chest rise. No laboring tachypnea or wheezing. No intercostal subcostal retraction. No rales and no rhonchi. ABDOMEN: Soft, flat, nontender to palpation, no guarding or rebound tenderness. There are no abnormal masses palpated. No pulsatile masses or bruits. Active and normal bowel sounds. EXTREMITIES: Normal inspection and palpation. No edema. No cyanosis. Patient is able to move all 4 extremities well SKIN: Warm and dry, no rashes noted. MUSCULOSKELETAL: No lumbar or midline bony tenderness. There is no CVA tenderness. No paraspinal muscle spasm or tenderness. NEURO: Cranial nerves II through XII grossly intact. There are no focal neurologic deficits noted. GCS is 15 PSYCHIATRIC: Patient is in normal mood and affect, cooperative. LYMPHATICS: No major lymphadenopathy noted. Course Quality Measures none Orders Category Date Time Status EKG (ED ONLY) *Do not use* NOW Care 03/15/25 13:22 Completed EKG (ED Only) Stat Exams 03/15/25 13:22 Draft XR chest 1V portable Stat Exams 03/15/25 17:28 Completed CBC Stat Lab 03/15/25 14:03 Completed CMP [Comprehensive Metabolic Panel] Stat Lab 03/15/25 14:03 Completed Troponin I Stat Lab 03/15/25 14:03 Completed Troponin I Stat Lab 03/15/25 17:41 Completed LORazepam [Ativan] Med 03/15/25 17:33 Discontinued 1 mg PO X1 ONE cloNIDine HCL [Catapres] Med 03/15/25 17:33 Discontinued 0.1 mg PO X1 ONE Vital Signs Vital signs: Vital Signs Temperature 98.1 F 03/15/25 13:19 Pulse Rate 81 03/15/25 13:19 Respiratory Rate 18 03/15/25 13:19 Blood Pressure 184/78 H 03/15/25 13:19 Pulse Oximetry (%) 98 03/15/25 13:19 Oxygen Delivery Method Room Air 03/15/25 13:19 Chest Pain MDM Narrative MDM Narrative:: Scribe Attestation: IAnamika am scribing for and in the presence of Dr. Sanders. Provider Notation: Although this document has been carefully reviewed, there may still be some phonetic and other typographical errors. These errors are purely grammatical due to imperfections in the software program and should not be construed in any way to compromise the substance of the patient's medical care during this visit. Patient presents with an episode in which she experienced dysesthesia diffusely involving upper chest and BUE onset of approximately 1 hour [employer]. Denies shortness of breath, lightheadedness, dizziness, vomiting, or diarrhea. Please see PE findings. Laboratory markers, including CBC and serum chemistries were essentially unremarkable. Initial Troponin I was undetected, F/U pending. EKG demonstrates evidence of anteroseptal NV. CXR demonstrates no acute findings. Patient treated with combination Clonidine PO in addition to Ativan. On reevaluation, blood pressure has decreased to 110 systolic range. Patient is alert with non-focal deficits, advise fluid hydration, Clonidine for rescue therapy, according to set parametrics, additionally Benzodiazepines prescribed for judicial use for anxiety. Considered stable for discharge. Final diagnoses include Accelerated hypertension and Situational anxiety. Patient data External records reviewed:: [facility] previous records (Reviewed prior ED records from 10/28/21. Patient was seen for Hypokalemia.) Clinical information provided by:: patient Social determinants that could affect healthcare access:: none Patient has the following chronic illnesses:: Edema, Hypertension, Gastroesophageal Reflux Disease, Arthritis, Carpal Tunnel Syndrome, Cataracts, Hypothyroidism, Anemia, Leukemia, Anxiety How is presenting disease/condition affected by chronic disease/condition?: exacerbated by Evaluation data The following diagnostics were reviewed and interpreted by me:: lab results, radiology exam(s) and EKG tracing(s) (EKG demonstrates sinus rhythm with rate of 78 bpm, anteroseptal NV, axis leftward, per my interpretation.) Lab and/or radiology exams considered but not ordered:: None Interpretation Summary: RADIOLOGY Chest X-Ray: FINDINGS: Normal heart size Lungs are clear The osseous structures are intact IMPRESSION: No active disease Medications / Prescriptions Medications or Prescriptions considered but not ordered:: None Medication administrations:: Medication Administration History Discontinued Medications Clonidine (Clonidine Hcl 0.1 Mg Tablet) 0.1 mg PO X1 ONE Stop: 03/15/25 17:34 Last Admin: 03/15/25 17:48 Dose: 0.1 mg Documented By: VL Lorazepam (Lorazepam 0.5 Mg Tablet) 1 mg PO X1 ONE Stop: 03/15/25 17:34 Last Admin: 03/15/25 17:48 Dose: 1 mg Documented By: VL See above if any Consultations Consultation(s) initiated? (list below): No Diagnosis Chest Pain Differential Diagnosis: pneumothorax, stable angina, unstable angina pectoris, atypical chest pain, st elevation myocardial infarction, costochondritis and chest pain Most likely diagnosis given after review of the tests above:: Accelerated hypertension, Situational anxiety Admission Indicated Admission indicated?: not indicated Explain why admission is indicated or not indicated:: Patient does not meet admisison criteria Admission Request Was there a request for admission?: No Disposition Plan Disposition Plan: Discharge Discharge Attestation Discharge Attestation: The patient and all family members were given an opportunity to ask questions and understood the discharge instructions. Discharge instructions specifically effects, indications for sooner follow up or return to the emergency department, and the expected course of current diagnosis. Patient condition: Stable Discharge Plan Plan Patient Disposition: HOME (Self Care) Discharge Disposition comment: Stable Prescriptions/Referrals Prescriptions/Med Rec: New clonidine HCl 0.1 mg tablet 0.1 mg PO BID Qty: 10 0RF Rx Instructions: Take 1 tablet if blood pressure greater than or equal to 170/100. May take up to 2 tablets/day. alprazolam 0.25 mg tablet 0.25 mg PO BID PRN (Reason: anxiety) Qty: 10 0RF No Action pravastatin 20 mg tablet 20 mg PO QDAY amlodipine 5 mg Tablet 5 mg PO QDAY levothyroxine 25 mcg tablet 1 tab PO QAM Patient Comments: TAKE 1 TABLET BY MOUTH EVERY DAY IN THE MORNING ON AN EMPTY STOMACH metoprolol tartrate 50 mg tablet 1 tab PO BIDWM Patient Comments: TAKE 1 TABLET BY MOUTH TWICE A DAY WITH FOOD escitalopram oxalate 10 mg tablet 1 tab PO QDAY Patient Comments: TAKE 1 TABLET BY MOUTH EVERY DAY lisinopril 10 mg Tablet 10 mg PO QDAY Referrals: Andres Madrigal MD [Primary Care Provider, Family Practice] - In 1 week Problem List Clinical Impression: Accelerated hypertension, Situational anxiety Impression comment: Accelerated hypertension/situational anxiety Patient/Caregiver Discharge Instructions Discharge Activity: activity as tolerated Diet Instructions: Low-salt Education Materials: Low-Salt Choices, Anxiety Disorders Tx Therapy, Blood Pressure Check Steps Additional Instructions: Continue current medications and record blood pressure readings twice daily. Clonidine for rescue according to parameters. Follow with primary care doctor in 1 to 2 weeks. Print Language: Serbian Stand Alone Forms: Cecilia Award Info., Patient Portal Info Letter
[2025-03-15 17:48] VITALS: BP 209/105; PULSE 83
[2025-03-15 18:03] LABS: Troponin I < 0.002 ng/mL (0.0-0.045)
[2025-03-15 19:45] VITALS: BP 105/60; PULSE 80; RESP 16; O2SAT 96
[2025-03-15 20:01] VITALS: RESP 16
== END 2025-03-15 20:02 | disposition home or self-care (01) ==
PROVIDERS: Physician Assistant; Emergency Provider Emergency Medicine; PCP Family Medicine
DX: I10 Essential (primary) hypertension (principal); F41.9 Anxiety disorder, unspecified; R07.9 Chest pain, unspecified; R94.31 Abnormal electrocardiogram [ECG] [EKG]
CPT/HCPCS: 36415; 71045; 80053; 84484; 85025; 93005; 99283; A9270